=== PATIENT | female | born 1965 | race Caucasian/White ===

== ENCOUNTER 2017-03-14 09:52 | Emergency (ER) | payer BC ==
[~2017-03-14] VITALS: Ht 162.6 cm; Wt 90.9 kg
[~2017-03-14 09:52] MED LIST: CIPR-255 PO; FAMO1TAB48 PO; HYDR25TA4 PO; JUNEL FE; LOSA50TA6 PO; POTA-327 PO; RANI300T PO; SIMV20TA2 PO
[2017-03-14 09:59] VITALS: TEMP 36.8; Ht 162.6 cm; Wt 90.9 kg
[2017-03-14] MEDS ORDERED: KETOROLAC TROMETHAMINE 30 MG/ML VIAL IV STA (10:09)
[2017-03-14] MEDS ORDERED: METOCLOPRAMIDE HCL INJ 5 MG/ML 2 ML VIAL IV STA (10:09)
[2017-03-14] MEDS ORDERED: SODIUM CHLORIDE 0.9% 1000ML 1,000 ML IV STA (10:09)
[2017-03-14] MEDS ORDERED: HYDROmorphone INJ 1 MG/ML SYR IV STA (10:09)
--- NOTE | 2017-03-14 10:11 | EMERGENCY ROOM VISIT NOTE ---
History Report prepared by Laura: Elicia Fontaine Under the Supervision of: Dr. Naif Coronel M.D. First contact with patient: 10:03 Chief Complaint: ABDOMINAL PAIN Stated Complaint: PAIN IN LEFT SIDE History of Present Illness The patient is a 51 year old female who presents to the Emergency Room with complaints of constant left lower abdominal pain beginning yesterday. The patient states that 5 days ago she began to have some slight pain that resolved after 2 days. She reports that yesterday the pain started again but was significantly worse and has worsened since then. She notes that she has a history of diverticulitis and her last episode as 1 year ago. The patient states that the area is much larger than previously and is more painful in the lower part of her abdomen. She denies any fever and chills. She notes that she last took Tylenol 5 hours ago. She states that movement worsens her pain. She reports that this is the worst pain that she has had in her life. Source of History: patient Onset: yesterday Position: abdomen (lower) Timing: constant, worsening Modifying Factors (Worsening): movement Associated Symptoms: No fevers, No chills Review of Systems See HPI for pertinent positives & negatives. A total of 10 systems reviewed and were otherwise negative. Past Medical & Surgical Medical Problems: (1) Benign hypertension (2) Diverticulitis Colon (W/O Ment Of Hemorrhage) (3) Hypercholesterolemia (4) Ovarian cyst (5) Uterine Fibroid Family History FH: colon cancer FH: stomach cancer Ulcerative colitis Social History Smoking Status: Never Smoker Alcohol Use: occasionally Marital Status: Housing Status: lives with family Occupation Status: employed Current/Historical Medications Scheduled Amoxicillin & Pot Clavulanate (Augmentin 875-125 mg), 1 TAB PO BID Famotidine (Pepcid), 40 MG PO BID Hydrochlorothiazide (Hctz), 25 MG PO DAILY Losartan Potassium (Cozaar), 50 MG PO DAILY Metformin Hcl (Glucophage), 500 MG PO BID Potassium Chloride (Potassium Chloride Er), 1 CAP PO DAILY Ranitidine (Zantac), 300 MG PO HS Simvastatin (Zocor), 40 MG PO QPM [], 120 DAILY Scheduled PRN Oxycodone/Acetaminophen 5MG/325MG (Percocet 5MG/325MG), 1-2 TAB PO Q4H PRN for Pain Allergies Coded Allergies: Lisinopril (Verified Allergy, Unknown, hives, 03/14/17) Sulfa Antibiotics (Verified Allergy, Unknown, itchy, 03/14/17) Physical Exam Vital Signs Date Time Temp Pulse Resp B/P (MAP) Pulse Ox O2 Delivery O2 Flow Rate FiO2 03/14/17 12:21 97 18 133/78 96 Room Air 03/14/17 11:23 95 18 134/81 98 Room Air 03/14/17 10:50 101 20 153/94 94 Room Air 03/14/17 09:59 36.8 105 18 172/86 98 Room Air Physical Exam GENERAL: Patient is a healthy-appearing well-nourished [] HEAD: Normocephalic atraumatic EYES: Ocular movements intact pupils equal and react to light OROPHARYNX mucous membranes are moist no exudates present no erythema or edema present NECK: Supple no nuchal rigidity CHEST: Good equal expansion LUNGS: Clear and equal to auscultation CARDIAC: Normal S1 and S2 ABDOMEN: Tender to the LLQ area. BACK: No CVA tenderness EXTREMITIES: No pain upon palpation normal muscle strength in all groups no clubbing cyanosis or edema NEURO: Patient is following commands and answering questions appropriately. Alert and oriented x3 Cranial Nerves 2-12 grossly intact Medical Decision & Procedures ER Provider Diagnostic Interpretation: CT results as stated below per my review and radiologist interpretation: CT ABD/PELVIS IV CONTRAST ONLY FINDINGS: Lower chest: There are dependent atelectatic changes present. Liver: There is minimal hepatic steatosis. There are no focal hepatic masses Gallbladder: Unremarkable. Spleen: Normal in size and attenuation. Pancreas: Unremarkable. Adrenal glands: Unremarkable. Kidneys: There is symmetric renal cortical enhancement. The kidneys are normal in size without hydronephrosis. Bowel: There are no transition zones indicate bowel obstruction. The appendix appears normal. There is acute diverticulitis involving the colon at the descending sigmoid junction. There is no evidence of a peridiverticular abscess. Peritoneum: There is no intraperitoneal free air or abdominal ascites. Vasculature: The abdominal aorta is normal in course and caliber. Adenopathy: None. Pelvic viscera: There is a large bilobed 6.8 cm exophytic uterine fibroid. There is a 42 mm rim calcified right posterior uterine fibroid. Additional fibroids are also suspected. Skeletal structures: No destructive osseous lesions are seen. IMPRESSION: 1. Acute diverticulitis at the descending sigmoid junction 2. No evidence of bowel obstruction. No evidence of free air 3. Multiple uterine fibroids 4. Normal appendix Electronically signed by: David Espinosa M.D. 03/14/2017 11:45 AM Dictated Date/Time: 03/14/2017 11:39 AM Laboratory Results 03/14/17 10:20 Red Blood Count 4.86, Mean Corpuscular Volume 81.1, Mean Corpuscular Hemoglobin 27.6, Mean Corpuscular Hemoglobin Concent 34.0, Mean Platelet Volume 8.9, Neutrophils (%) (Auto) 72.3, Lymphocytes (%) (Auto) 21.0, Monocytes (%) (Auto) 4.3, Eosinophils (%) (Auto) 2.1, Basophils (%) (Auto) 0.1, Neutrophils # (Auto) 8.52, Lymphocytes # (Auto) 2.47, Monocytes # (Auto) 0.51, Eosinophils # (Auto) 0.25, Basophils # (Auto) 0.01 03/14/17 10:20 Test 03/14/17 10:20 White Blood Count 11.78 K/uL (4.8-10.8) Red Blood Count 4.86 M/uL (4.2-5.4) Hemoglobin 13.4 g/dL (12.0-16.0) Hematocrit 39.4 % (37-47) Mean Corpuscular Volume 81.1 fL (80-100) Mean Corpuscular Hemoglobin 27.6 pg (25-34) Mean Corpuscular Hemoglobin Concent 34.0 g/dl (32-36) Platelet Count 283 K/uL (130-400) Mean Platelet Volume 8.9 fL (7.4-10.4) Neutrophils (%) (Auto) 72.3 % Lymphocytes (%) (Auto) 21.0 % Monocytes (%) (Auto) 4.3 % Eosinophils (%) (Auto) 2.1 % Basophils (%) (Auto) 0.1 % Neutrophils # (Auto) 8.52 K/uL (1.4-6.5) Lymphocytes # (Auto) 2.47 K/uL (1.2-3.4) Monocytes # (Auto) 0.51 K/uL (0.11-0.59) Eosinophils # (Auto) 0.25 K/uL (0-0.5) Basophils # (Auto) 0.01 K/uL (0-0.2) RDW Standard Deviation 39.4 fL (36.4-46.3) RDW Coefficient of Variation 13.4 % (11.5-14.5) Immature Granulocyte % (Auto) 0.2 % Immature Granulocyte # (Auto) 0.02 K/uL (0.00-0.02) Urine Color DK YELLOW Urine Appearance CLEAR (CLEAR) Urine pH 5.5 (4.5-7.5) Urine Specific [place] 1.030 (1.000-1.030) Urine Protein NEG (NEG) Urine Glucose (UA) NEG (NEG) Urine Ketones TRACE (NEG) Urine Occult Blood NEG (NEG) Urine Nitrite NEG (NEG) Urine Bilirubin NEG (NEG) Urine Urobilinogen NEG (NEG) Urine Leukocyte Esterase NEG (NEG) Anion Gap 11.0 mmol/L (3-11) Est Creatinine Clear Calc Drug Dose 91.0 ml/min Estimated GFR () 99.8 Estimated GFR (Non- 86.1 BUN/Creatinine Ratio 11.9 (10-20) Calcium Level 9.6 mg/dl (8.5-10.1) Total Bilirubin 0.4 mg/dl (0.2-1) Direct Bilirubin 0.1 mg/dl (0-0.2) Aspartate Amino Transf (AST/SGOT) 10 U/L (15-37) Alanine Aminotransferase (ALT/SGPT) 14 U/L (12-78) Alkaline Phosphatase 56 U/L (45-117) Total Protein 7.5 gm/dl (6.4-8.2) Albumin 3.3 gm/dl (3.4-5.0) Lipase 121 U/L (73-393) Labs reviewed by ED physician. Medications Administered Medications (Trade) Dose Ordered Sig/Tina Route Start Time Stop Time Status Last Admin Dose Admin Sodium Chloride 1,000 ml @ 999 mls/hr Q1H1M STAT IV 03/14/17 10:09 03/14/17 11:09 DC 03/14/17 10:47 999 MLS/HR Ketorolac Tromethamine (Toradol Inj) 30 mg NOW STAT IV 03/14/17 10:09 03/14/17 10:11 DC 7/23/17 10:47 30 MG Metoclopramide HCl (Reglan Inj) 10 mg NOW STAT IV 03/14/17 10:09 03/14/17 10:11 DC 03/14/17 10:47 10 MG Hydromorphone HCl (Dilaudid Inj) 1 mg NOW STAT IV 03/14/17 10:09 03/14/17 10:11 DC 03/14/17 10:47 1 MG Amoxicillin/ Clavulanate Potassium (Augmentin Tab) 875 mg ONE ONCE PO 03/14/17 12:15 03/14/17 12:16 DC 03/14/17 12:19 875 MG ED Course 1003: Past medical records reviewed. The patient was evaluated in room B5. A complete history and physical examination was performed. 1009: Dilaudid Inj 1mg IV, Reglan Inj 10mg IV, Toradol Inj 30mg IV, Sodium Chloride 1000 ml @ 999 mls/hr IV. 1215: Augmentin Tab 875mg PO. 1221: I reevaluated and updated the patient. 1229: Upon reexamination the patient is doing well. I discussed results and treatment plan with the patient. She verbalizes agreement and understanding. The patient is ready for discharge. Medical Decision Differential diagnosis: Etiologies such as appendicitis, diverticulitis, PUD, biliary pathology, UTI, pancreatitis, obstruction, mesenteric ischemia, aortic pathology, infections, inflammatory bowel disease, renal colic, as well as others were entertained. Medication Reconciliation: I attest that I have personally reviewed the patient' s current medication list Blood Pressure Screening: Patient was found to have an elevated blood pressure and was referred to their primary care doctor for recheck and further treatment This is his this is a 51-year-old female who presents emergency department complaining of left lower quadrant abdominal pain. The patient is a benign soft belly on examination however she is tender in the left lower quadrant. The patient states this is the worst pain she is ever had in regards to her diverticulitis therefore using shared medical decision-making the patient decided to go for a CAT scan of the left lower quadrant. This was concerning for diverticulitis and the patient does have an elevation in her white blood cell count. After serial abdominal examination I do feel that the patient is safe enough to be discharged home. I will place her on Augmentin and stressed the need for follow-up with gastroenterology area and patient was in agreement with the treatment plan. Impression Primary Impression: Diverticulitis Scribe Attestation The scribe's documentation has been prepared under my direction and personally reviewed by me in its entirety. I confirm that the note above accurately reflects all work, treatment, procedures, and medical decision making performed by me. Departure Information Dispostion Home / Self-Care Prescriptions Oxycodone/Acetaminophen 5MG/325MG (PERCOCET 5MG/325MG) Tab 1-2 TAB PO Q4H Y for Pain, #14 TAB Prov: Naif Coronel MD 03/14/17 Amoxicillin & Pot Clavulanate (Augmentin 875-125 mg) 1 Tab Tab 1 TAB PO BID for 10 Days, #20 TAB Prov: Naif Coronel MD 03/14/17 Referrals Dee Yoo PA-C (PCP) Forms Call Back Authorization, HOME CARE DOCUMENTATION FORM, IMPORTANT VISIT INFORMATION Patient Instructions Diverticulosis Diverticulitis, Hypertension Hi, [facility] Additional Instructions Follow up with DR Ribeiro's office You were found to have an elevated blood pressure today (>120 sytolic or >90 diastolic). Per medicare guidelines, you need to follow up with this blood pressure screening with your Primary Care Physician (PCP). For a new PCP call [phone]. You received narcotic or benzodiazepene medication while in the emergency room today. Do not drive, operate heavy machinery, or drink alcohol under the influence of this medication. Take 600 mg Ibuprofen every 6 hours Take Percocet for breakthrough pain You have been examined and treated today on an emergency basis only. This is not a substitute for, or an effort to provide, complete comprehensive medical care. It is impossible to recognize and treat all injuries or illnesses in a single emergency department visit. It is therefore important that you follow up closely with your PCP. Call as soon as possible for an appointment. Thank you for your time and consideration. I look forward to speaking with you again soon. Please don't hesitate to call us if you have any questions. Problem Qualifiers Primary Impression: Diverticulitis Diverticulitis site: large intestine Diverticulitis bleeding: without bleeding Diverticulitis complication: without perforation or abscess Qualified Codes: K57.32 - Diverticulitis of large intestine without perforation or abscess without bleeding
[2017-03-14] MEDS ORDERED: OPTIRAY 320 IV PRN (10:15)
[2017-03-14 10:30] LABS: BASO % 0.1 %; BASO ABS # 0.01 K/uL (0-0.2); COMPLETE YES; EOS % 2.1 %; HEMATOCRIT 39.4 % (37-47); IG% 0.2 %; LYMPH ABS # 2.47 K/uL (1.2-3.4); MEAN CELL VOLUME 81.1 fL (80-100); MEAN CORPUSCULAR HEMOGLOBIN 27.6 pg (25-34); MEAN PLATELET VOLUME 8.9 fL (7.4-10.4); MONO % 4.3 %; NEUT % 72.3 %; PLATELET COUNT 283 K/uL (130-400); RED BLOOD COUNT 4.86 M/uL (4.2-5.4); WHITE BLOOD COUNT 11.78 K/uL (4.8-10.8)
[2017-03-14 10:44] LABS: BUN/CREATININE RATIO 11.9 (10-20); CALCIUM 9.6 mg/dl (8.5-10.1); CREATININE 0.79 mg/dl (0.60-1.20); POTASSIUM 3.5 mmol/L (3.5-5.1)
[2017-03-14 10:48] LABS: URINE APPEARANCE CLEAR (CLEAR); URINE BILIRUBIN NEG (NEG); URINE COLOR DK YELLOW; URINE NITRITE NEG (NEG); URINE PH 5.5 (4.5-7.5); UROBILINOGEN NEG (NEG)
[2017-03-14 10:54] LABS: MANUAL MICROSCOPIC REQUIRED? NO; REVIEW REQ? NO
--- NOTE | 2017-03-14 11:46 | DIAGNOSTIC IMAGING REPORT ---
CT ABD/PELVIS IV CONTRAST ONLY CLINICAL HISTORY: Left lower quadrant abdominal pain COMPARISON STUDY: 03/05/2016 TECHNIQUE: Following the IV administration of 94 mL of [id number]-320, CT scan of the abdomen and pelvis was performed from the lung bases to the proximal femurs. Images are reviewed in the axial, sagittal, and coronal planes. IV contrast was administered without complication. A dose lowering technique was utilized adhering to the principles of ALARA. CT DOSE: 834.15 mGy.cm FINDINGS: Lower chest: There are dependent atelectatic changes present. Liver: There is minimal hepatic steatosis. There are no focal hepatic masses Gallbladder: Unremarkable. Spleen: Normal in size and attenuation. Pancreas: Unremarkable. Adrenal glands: Unremarkable. Kidneys: There is symmetric renal cortical enhancement. The kidneys are normal in size without hydronephrosis. Bowel: There are no transition zones indicate bowel obstruction. The appendix appears normal. There is acute diverticulitis involving the colon at the descending sigmoid junction. There is no evidence of a peridiverticular abscess. Peritoneum: There is no intraperitoneal free air or abdominal ascites. Vasculature: The abdominal aorta is normal in course and caliber. Adenopathy: None. Pelvic viscera: There is a large bilobed 6.8 cm exophytic uterine fibroid. There is a 42 mm rim calcified right posterior uterine fibroid. Additional fibroids are also suspected. Skeletal structures: No destructive osseous lesions are seen. IMPRESSION: 1. Acute diverticulitis at the descending sigmoid junction 2. No evidence of bowel obstruction. No evidence of free air 3. Multiple uterine fibroids 4. Normal appendix Electronically signed by: David Espinosa M.D. 03/14/2017 11:45 AM Dictated Date/Time: 03/14/2017 11:39 AM
[2017-03-14] MEDS ORDERED: POTA1CAP2 PO (12:01)
[2017-03-14] MEDS ORDERED: RANI300T2 PO (12:01)
[2017-03-14] MEDS ORDERED: GLC/500 PO (12:01)
[2017-03-14] MEDS ORDERED: AMOXICILLIN/CLAVULANATE TAB 875 MG TAB PO ONE (12:15)
[2017-03-14] MEDS ORDERED: AMOX875T PO (12:18)
[2017-03-14] MEDS ORDERED: OXYC-57 PO (12:18)
[2017-03-14 12:21] VITALS: BP 133/78; PULSE 97; O2SAT 96
== END 2017-03-14 12:35 | disposition home or self-care (01) ==
LOC: C.EDB 09:53
DX: K57.32 Diverticulitis of large intestine without perforation or abscess without bleeding (principal); I10 Essential (primary) hypertension; E78.00 Pure hypercholesterolemia, unspecified; N83.209 Unspecified ovarian cyst, unspecified side; D25.9 Leiomyoma of uterus, unspecified; Z79.84 Long term (current) use of oral hypoglycemic drugs; Z80.0 Family history of malignant neoplasm of digestive organs

== ENCOUNTER 2021-08-17 16:00 | Inpatient (IN) ==
[2021-08-17 16:31] LABS: Basophils # (auto) 0.02 K/uL (0-0.2); Basophils % (auto) 0.3 %; Eosinophils # (auto) 0.23 K/uL (0-0.5); Hematocrit (blood only) 37.8 % (37-47); Hemoglobin 12.8 g/dL (12.0-16.0); Immature Granulocytes # (auto) 0.01 K/uL (0.00-0.02); Immature Granulocytes % (auto) 0.1 %; Lymphocytes # (auto) 2.03 K/uL (1.2-3.4); Lymphocytes % (auto) 26.2 %; Mean Corpuscular Hemoglobin 28.1 pg (25-34); Mean Corpuscular Hgb Conc 33.9 g/dL (32-36); Mean Corpuscular Volume 83.1 fL (80-100); Mean Platelet Volume 9.3 fL (7.4-10.4); Monocytes # (auto) 0.34 K/uL (0.11-0.59); Monocytes % (auto) 4.4 %; Neutrophils # (auto) 5.12 K/uL (1.4-6.5); Platelet Count 263 K/uL (130-400); RDW Coefficient of Variation 13.5 % (11.5-14.5); RDW Standard Deviation 40.6 fL (36.4-46.3); Red Blood Count 4.55 M/uL (4.2-5.4); White Blood Count 7.75 K/uL (4.8-10.8)
[2021-08-17] MEDS ORDERED: SODIUM CHLORIDE 0.9% 1000ML 1,000 ML IV SCH (16:53)
--- NOTE | 2021-08-17 16:54 | Emergency Department Note ---
History of Present Illness General Chief complaint: Abnormal Labs/Diagnostic Testing Stated complaint: ABNORMAL LAB WORK,SENT FOR MRI,?BLOOD CLOT Time Seen by Provider: 08/17/21 16:31 History of Present Illness Maximum Pain Intensity: 5 Patient is a 55-year-old female with past medical history significant for GERD, hypertension, dyslipidemia and diabetes who presents emergency department for evaluation after she had some abnormal blood work earlier today. Patient notes that she went to a [facility] walk-in clinic this afternoon for evaluation of 2 complaints. First she had had a lot of nasal and sinus pressure and eye pain over the last week and thought she had a sinus infection. Of note, she had also been experiencing some upper abdominal discomfort on and off over the last 3 weeks that was quite intense last evening. She saw the practitioner at the clinic who gave her a Z-Myles for a presumed sinus infection, and a prescription for Carafate for her stomach pain but recommended that she come over the hospital to have some blood work done. Patient was contacted by the pr actitioner that her D-dimer was elevated and it was likely that she would need some imaging, therefore they directed her to the emergency department. Patient notes that she has had epigastric pain on and off over the last 3 weeks. It wraps underneath her ribs bilaterally to her flanks and radiates through to her back. She denies any associated nausea or vomiting but admits to some anorexia. She is also had some loose stools. She describes it as a squeezing and a spasm pain. At its worst last night she would have rated it a 7/10. She currently rates it a 2/10. She has a history of diverticulitis but states that this does not feel similar. She had ham and sweet potatoes for Kell dinner yesterday. She drinks alcohol quite infrequently, had a small glass of wine about 3 days ago. She denies any urinary symptoms. No recent medication changes. She is on Glucophage and Januvia for her diabetes. They did trial her on Jardiance for about a month, but that was in January (6 months ago). She denies any chest pain palpitations or shortness of breath. She did do at home Covid te st earlier this week which was negative. She is vaccinated against COVID x 3. Home Medications Medication Instructions Recorded Confirmed Type famotidine 40 mg tablet 40 mg PO BID #0 tab 05/01/12 08/17/21 History hydrochlorothiazide 25 mg tablet 25 mg PO DAILY #0 tab 05/01/12 08/17/21 History simvastatin 40 mg tablet 40 mg PO QAM #0 tab 05/01/12 08/17/21 History metformin 500 mg tablet,extended 2,000 mg PO PM #0 tab 03/14/17 08/17/21 History release 24hr potassium chloride 10 mEq 10 meq PO DAILY #0 cap 03/14/17 08/17/21 History capsule,extended release aspirin 81 mg tablet,delayed 81 mg PO DAILY 08/17/21 08/17/21 History release sitagliptin 100 mg tablet (Januvia) 100 mg PO DAILY 08/17/21 08/17/21 History valsartan 80 mg tablet 80 mg PO DAILY 08/17/21 08/17/21 History Allergies Allergy/AdvReac Type Severity Reaction Status Date / Time lisinopril Allergy Unknown hives Verified 08/17/21 17:10 Sulfa (Sulfonamide Allergy Unknown itchy Verified 08/17/21 17:10 Antibiotics) Past Med/Surg History Medical History (Updated 08/17/21 @ 18:49 by Zulay Ortiz) Diabetes Diverticulitis Diverticulosis Dyslipidemia GERD (gastroesophageal reflux disease) Hypertension Surgical History (Updated 08/17/21 @ 18:48 by Zulay Ortiz) No history of previous surgery Social History Smoking Status: Never smoker Preferred Language: Arabic Feels Safe at Home: Yes Physical Exam Vital Signs Vital Signs - 24 hr 08/17/21 16:03 08/17/21 17:00 08/17/21 19:00 Temperature 36.9 C Temperature Source Temporal Artery Scan Pulse Rate 113 H Pulse Rate [Apical] 100 H 98 H Pulse Rhythm [Apical] Regular Respiratory Rate 19 16 18 Respiratory Effort / Characteristics Non-Labored Spontaneous Non-Labored Non-Labored Spontaneous Respiratory Depth Normal Normal Normal Respiratory Pattern Regular Regular Blood Pressure 169/88 H Blood Pressure [Left Arm] 153/90 H 171/96 H Blood Pressure Mean 115 Blood Pressure Mean [Left Arm] 111 121 Blood Pressure Position [Left Arm] Sitting Pulse Oximetry 97 95 98 Oxygen Delivery Method Room Air Room Air Room Air Sepsis Recent Fever Within 48 Hours No Sepsis New/Unexplained Change in Mental Status N/A Sepsis Action Taken by Nursing No Action Required CONSTITUTIONAL: Patient is a well-appearing 55-year-old female who is awake and alert and in no acute distress. EYES: Pupils equal, round, reactive to light and accommodation. EOMs intact without nystagmus. Sclera are anicteric. ENT: Tympanic membranes intact, with normal landmarks. External canals are clear. Oral and nasopharynx are clear. Mucous membranes are moist, no lesions, tongue and gums appear normal. CARDIOVASCULAR: Regular rate and rhythm,. Peripheral pulses easy to palpable. RESPIRATORY: Breath sounds equal and clear to auscultation without wheezes, rales, or rhonchi heard. Full and equal chest expansion without accessory muscle use or retractions. GI: Bowel sounds are present. Abdomen is soft, obese, mildly distended in the epigastric and the left upper quadrant without guarding or rebound. No pain in the right upper quadrant. No pain in the right lower quadrant over McBurney sign. No CVA tenderness. MUSCULOSKELETAL: Full range of motion of extremities x 4 with good strength. No cyanosis, edema, joint tenderness or swelling. No deformity. INTEGUMENTARY: No lesions or rash, normal skin turgor. NEUROLOGICAL: Alert, oriented, and cooperative. Cranial nerves, sensation and strength grossly intact. Pupils round, equal, and react to light, EOMs are full. LYMPH: No lymphadenopathy. Course Course The patient was seen and assessed as above. Old records are reviewed, specifically the blood work that was performed at our facility around 1300 today. Of note, her white count was normal, she was not anemic. No electrolyte or renal function abnormalities noted. Transaminases are not elevated, D-dimer was slightly elevated at 640, but the lipase was markedly elevated at 8900. Laboratory studies from earlier today were reviewed with the patient. She does not have a history of pancreatitis. Repeat laboratory studies were collected by nursing staff-CBC with differential, CMP and lipase were ordered.. EKG was obtained and is as noted below. Patient was ordered IV fluids, she declined any medication for pain or nausea at this time. Given the elevated D-dimer, which is likely related to the pancreatitis, chest CT was ordered, in addition to a CT of the abdomen and pelvis to evaluate for pancreatitis. Repeat laboratory studies here this afternoon, again no normal white count at 7700, H&H 12.8 and 37.8, platelet count 263,000. Sodium 135, potassium 3.2, chloride 99, carbon 29, BUN 10, creatinine 0.77. Glucose slightly high at 307. AST, ALT and alk phos are all normal. Lipase is now 10,286. Covid swab negative. Urine microscopy is without signs of infection. CT scan of the chest is negative for PE. CT scan of the abdomen and pelvis shows no CT evidence for pancreatitis. Hiatal hernia noted, diverticulosis without evidence for diverticulitis. Gallbladder is well distended with no evidence for intraluminal calculi, wall thickening or pericholecystic edema. Patient reviewed with Dr. Du. The patient was reassessed. She reported that she still is experiencing some minor waves of discomfort, but again declined any medication for pain. Laboratory studies and CT scan imaging was reviewed with her. Admission/observation was advised. She does note that her blood sugars have been trending high over the last couple of days, she thought that this was due to her dietary indiscretions because of the holiday. She has a continuous glucose monitor. Consultation was placed with the [facility] service. Patient was reviewed with Dr. Wilson. Please refer to his H&P and admission orders for further information. Administered Medications Sodium Chloride (Nss 1000ml) 1,000 mls @ 250 mls/hr IV .Q4H ZACK Stop: 09/16/21 18:44 Last Admin: 08/17/21 19:26 Dose: 250 mls/hr Documented by: [id number] Discontinued Medications Sodium Chloride (Nss 1000ml) 1,000 mls @ 999 mls/hr IV .Q1H1M ZACK Stop: 08/17/21 17:53 Last Infusion: 08/17/21 18:13 Dose: 0 mls/hr Documented by: [id number] Admin: 08/17/21 16:59 Dose: 999 mls/hr Documented by: [id number] Ioversol (Optiray 320 125ml) 120 ml IV ONCE ONE Stop: 08/17/21 17:38 Last Admin: 08/17/21 17:38 Dose: 120 ml Documented by: [id number] Potassium Chloride (Potassium Chloride Crtab 20 Meq Tabcr) 40 meq PO NOW STA Stop: 08/17/21 20:43 Last Admin: 08/17/21 20:46 Dose: 40 meq Documented by: [id number] Medical Decision Making Differential Diagnosis Differential diagnoses entertained included GERD, gastritis, esophagitis, peptic ulcer disease, pancreatitis, biliary colic, acute cholecystitis, ascending cholangitis, diverticulitis, mass or malignancy, among others. Medical Records Attestation: I reviewed the patient's medical records. Home Medications Current Medication List: was personally reviewed by me Laboratory Data Attestation: I reviewed the patient's lab results. Result diagrams: 08/17/21 Unknown 08/17/21 Unknown Lab Results 08/17/21 08/17/21 08/17/21 Range/Units 17:00 17:40 Unknown WBC 7.75 (4.8-10.8) K/uL RBC 4.55 (4.2-5.4) M/uL Hgb 12.8 (12.0-16.0) g/dL Hct 37.8 (37-47) % MCV 83.1 (80-100) fL MCH 28.1 (25-34) pg MCHC 33.9 (32-36) g/dL RDW Std Deviation 40.6 (36.4-46.3) fL RDW Coeff of Jessica 13.5 (11.5-14.5) % Plt Count 263 (130-400) K/uL MPV 9.3 (7.4-10.4) fL Immature Gran % (Auto) 0.1 % Neut % (Auto) 66.0 % Lymph % (Auto) 26.2 % [place] % (Auto) 4.4 % Eos % (Auto) 3.0 % Baso % (Auto) 0.3 % Neut # (Auto) 5.12 (1.4-6.5) K/uL Lymph # (Auto) 2.03 (1.2-3.4) K/uL [place] # (Auto) 0.34 (0.11-0.59) K/uL Eos # (Auto) 0.23 (0-0.5) K/uL Baso # (Auto) 0.02 (0-0.2) K/uL Immature Gran # (Auto) 0.01 (0.00-0.02) K/uL Sodium (136-145) mmol/L Potassium (3.5-5.1) mmol/L Chloride (98-107) mmol/L Carbon Dioxide (21-32) mmol/L Anion Gap (3-11) BUN (7-18) mg/dl Creatinine (0.6-1.2) mg/dl Est Cr Clr Drug Dosing ml/min Est GFR ( Amer) ml/min Est GFR (Non-Af Amer) ml/min BUN/Creatinine Ratio (10-20) Glucose (70-99) mg/dl Calcium (8.5-10.1) mg/dl Total Bilirubin (0.2-1) mg/dl AST (15-37) U/L ALT (12-78) Alkaline Phosphatase (45-117) U/L Total Protein (6.4-8.2) gm/dl Albumin (3.4-5.0) gm/dl Globulin (2.5-4.0) gm/dl Albumin/Globulin Ratio (0.9-2) Lipase (73-393) U/L Beta-Hydroxybutyric Acd (0.2-2.81) mg/dl Urine Color Yellow Urine Appearance Clear (Clear) Urine pH 5.5 (4.5-7.5) Ur Specific [place] 1.021 (1.000-1.030) Urine Protein Negative (Negative) Urine Glucose (UA) Trace H (Negative) Urine Ketones Negative (Negative) Urine Blood Negative (Negative) Urine Nitrite Negative (Negative) Urine Bilirubin Negative (Negative) Urine Urobilinogen Negative (Negative) Ur Leukocyte Esterase Trace H (Negative) Urine WBC (Auto) 1-5 (0-5) /hpf Urine RBC (Auto) 0-4 (0-4) /hpf U Hyaline Cast (Auto) 0 (0-5) /lpf U Epithel Cells (Auto) 5-10 H (0-5) /lpf Urine Bacteria (Auto) Negative (Negative) SARS-CoV-2, RNA, NAAT NEGATIVE (NEGATIVE) 08/17/21 Range/Units Unknown WBC (4.8-10.8) K/uL RBC (4.2-5.4) M/uL Hgb (12.0-16.0) g/dL Hct (37-47) % MCV (80-100) fL MCH (25-34) pg MCHC (32-36) g/dL RDW Std Deviation (36.4-46.3) fL RDW Coeff of Jessica (11.5-14.5) % Plt Count (130-400) K/uL MPV (7.4-10.4) fL Immature Gran % (Auto) % Neut % (Auto) % Lymph % (Auto) % [place] % (Auto) % Eos % (Auto) % Baso % (Auto) % Neut # (Auto) (1.4-6.5) K/uL Lymph # (Auto) (1.2-3.4) K/uL [place] # (Auto) (0.11-0.59) K/uL Eos # (Auto) (0-0.5) K/uL Baso # (Auto) (0-0.2) K/uL Immature Gran # (Auto) (0.00-0.02) K/uL Sodium 135 L (136-145) mmol/L Potassium 3.2 L (3.5-5.1) mmol/L Chloride 99 (98-107) mmol/L Carbon Dioxide 29 (21-32) mmol/L Anion Gap 7.0 (3-11) BUN 10 (7-18) mg/dl Creatinine 0.77 (0.6-1.2) mg/dl Est Cr Clr Drug Dosing 86.9 ml/min Est GFR ( Amer) 100.0 ml/min Est GFR (Non-Af Amer) 86.3 ml/min BUN/Creatinine Ratio 13.6 (10-20) Glucose 307 H* (70-99) mg/dl Calcium 10.0 (8.5-10.1) mg/dl Total Bilirubin 0.3 (0.2-1) mg/dl AST 9 L (15-37) U/L ALT 16 (12-78) Alkaline Phosphatase 69 (45-117) U/L Total Protein 7.9 (6.4-8.2) gm/dl Albumin 3.5 (3.4-5.0) gm/dl Globulin 4.4 H (2.5-4.0) gm/dl Albumin/Globulin Ratio 0.8 L (0.9-2) Lipase 08866 H (73-393) U/L Beta-Hydroxybutyric Acd (0.2-2.81) mg/dl Urine Color Urine Appearance (Clear) Urine pH (4.5-7.5) Ur Specific [place] (1.000-1.030) Urine Protein (Negative) Urine Glucose (UA) (Negative) Urine Ketones (Negative) Urine Blood (Negative) Urine Nitrite (Negative) Urine Bilirubin (Negative) Urine Urobilinogen (Negative) Ur Leukocyte Esterase (Negative) Urine WBC (Auto) (0-5) /hpf Urine RBC (Auto) (0-4) /hpf U Hyaline Cast (Auto) (0-5) /lpf U Epithel Cells (Auto) (0-5) /lpf Urine Bacteria (Auto) (Negative) SARS-CoV-2, RNA, NAAT (NEGATIVE) Imaging Data Attestation: I personally reviewed and interpreted this imaging study as follows: Radiologist's Impression: Abdomen/Pelvis CT 08/17/21 16:52 CT abd pelvis IV con only CLINICAL HISTORY: epigastric pain, elevated lipase COMPARISON STUDY: 03/14/2017 CT DOSE: TECHNIQUE: Standard CT of the Abdomen and Pelvis was performed with IV contrast. A dose lowering technique was utilized adhering to the principles of ALARA. Contrast Volume: Optiray 320, 120 ml. The patient did not receive oral contrast. FINDINGS: Lung base: The lung bases are clear. Abdominal cavity: There is no evidence for abdominal mass, adenopathy or ascites. Liver: There is homogeneous attenuation of the liver parenchyma. There is no evidence for enhancing mass lesion. Spleen: There is homogeneous attenuation of the splenic parenchyma. There is no enhancing mass lesion. Pancreas: There is homogeneous attenuation of the pancreatic parenchyma. There is no evidence for mass lesion or peripancreatic fluid collection. Gall Bladder: The gallbladder is well distended with no evidence for intraluminal calculi, wall thickening or pericholecystic edema. Adrenal glands: The adrenal glands are normal in size and attenuation. There is no evidence for enhancing mass lesion. Kidneys: There is homogeneous attenuation of the renal parenchyma bilaterally. There is no evidence for renal calculus or hydronephrosis. There is no evidence for enhancing mass. Bowel: There is a small sliding-type hiatal hernia. The bowel loops are normally placed within the abdomen and pelvis without evidence for dilatation or obstruction. There is diverticulosis of the descending and sigmoid colon. There is no evidence for diverticulitis. There are no inflammatory changes present. There is no evidence for free air. There is a normal appendix in the right lower quadrant. Bladder: The bladder is within normal limits with no evidence for focal mass, calculus or diverticulum. : There is no evidence for pelvic mass or adenopathy. There is no evidence for pelvic ascites. Uterus is again enlarged with calcified fibroid. Vasculature: There is no evidence for aneurysmal dilatation of the abdominal aorta. Mild atherosclerotic calcifications present. Osseous structures: There is no acute osseous pathology. Mild degenerative changes are seen within the spine. IMPRESSION: 1. No CT evidence for pancreatitis. 2. Small sliding-type hiatal hernia. 3. Diverticulosis without evidence for diverticulitis. 4. Additional nonacute findings as delineated above. ACT 112: Negative or not required by law. Electronically signed by: Myles Aggarwal M.D. 08/17/2021 6:27 PM Chest CTA 08/17/21 16:52 CT angio chest PE protocol CLINICAL HISTORY: Epigastric pain radiating into the chest. Elevated d-dimer. Evaluate for pulmonary embolus COMPARISON STUDY: No previous studies for comparison. CT DOSE: 1381.90 mGy.cm TECHNIQUE: CT Angio of the chest was performed.followed by image post processing with coronal, and sagittal MIP reformats. Contrast Volume: Optiray 320, 120 ml FINDINGS: Thyroid: There is marked enlargement of the thyroid gland with calcification present. Right lobe is greater than the left. Follow-up thyroid ultrasound on a nonemergent basis is recommended. Vasculature: There is homogeneous perfusion of the pulmonary vasculature bilaterally. No intraluminal filling defects or evidence for pulmonary embolus is seen. Airway: The airway is clear. No endobronchial lesion is identified. Lungs: There is asymmetric elevation of the right hemidiaphragm with minimal atelectasis versus scarring at the right lung base. The lungs are otherwise clear of acute alveolar opacities, air bronchograms or pulmonary nodules. Pleura: There is no evidence for pleural effusion. There is no evidence for pneumothorax. Mediastinum: There is no evidence for pathologic adenopathy. The heart size is within normal limits. There is coronary artery calcification present. The thoracic aorta is within normal limits. There is no evidence for pericardial effusion. Upper abdomen:The adrenal glands are normal bilaterally. There is evidence for hepatosplenomegaly with suspicion of fatty infiltration of the liver. Osseous structures: There is no acute osseous pathology. Impression: 1. No CTA evidence for pulmonary embolus. 2. Elevation of the right hemidiaphragm with minimal atelectasis versus scarring at the right lung base. Otherwise, no acute chest disease. 3. Coronary artery calcification. 4. Evidence for hepatosplenomegaly with fatty infiltration of liver. ACT 112: Negative or not required by law. Electronically signed by: Myles Aggarwal M.D. 08/17/2021 6:13 PM ECG Data Attestation: I personally reviewed and interpreted this ECG as follows: Indication: + abdominal pain Rate (beats per minute): 108 Rhythm: + sinus tachycardia ECG Intervals/blocks: + Normal QT and + Normal QT-c ECG [place]: + Normal ECG ST segments: + Normal ST segments Comparison ECG Date: no prior available MDM Narrative See ED Course. Impression & Plan Acute pancreatitis Discharge Plan Visit Data Chief Complaint: Abnormal Labs/Diagnostic Testing Stated Complaint: ABNORMAL LAB WORK,SENT FOR MRI,?BLOOD CLOT ED Provider: Jake Du ED Midlevel Provider: Zulay Ortiz Discharge Problem: Acute pancreatitis Patient Disposition: Being Evaluated by Hospitalist Forms Stand Alone Forms: My [facility] Prescriptions Prescriptions: No Action famotidine 40 mg Tablet 40 mg PO BID Qty: 0 RF: 0 simvastatin 40 mg Tablet 40 mg PO QAM Qty: 0 RF: 0 hydrochlorothiazide 25 mg Tablet 25 mg PO DAILY Qty: 0 RF: 0 potassium chloride 10 mEq Capsule, Extended Release 10 meq PO DAILY Qty: 0 RF: 0 metformin 500 mg Tablet Extended Release 24hr 2,000 mg PO PM Qty: 0 RF: 0 valsartan 80 mg tablet 80 mg PO DAILY RF: 0 aspirin 81 mg Tablet,Delayed Release (Dr/Ec) 81 mg PO DAILY RF: 0 Januvia 100 mg tablet 100 mg PO DAILY RF: 0 Referrals Referrals: Dee Yoo PA-C [Primary Care Provider] -
[2021-08-17 16:55] LABS: Albumin Globulin Ratio 0.8 (0.9-2); Albumin Level 3.5 gm/dl (3.4-5.0); BUN Creatinine Ratio 13.6 (10-20); Bilirubin,Total 0.3 mg/dl (0.2-1); Creatinine Clr Calc Pharmacy 86.9 ml/min; Est GFR (Non-African American) 86.3 ml/min; Potassium 3.2 mmol/L (3.5-5.1); Total Protein 7.9 gm/dl (6.4-8.2)
[2021-08-17 16:56] LABS: Globulin 4.4 gm/dl (2.5-4.0)
[2021-08-17] MEDS ORDERED: OPTIRAY 320 125ml IV ONE (17:37)
[2021-08-17 17:56] LABS: Appearance Urine Clear (Clear); Bacteria Urine Automated Negative (Negative); Bilirubin Urine Negative (Negative); Blood Urine Negative (Negative); Cast Urine Automated 0 /lpf (0-5); Color Urine Yellow; Glucose Urine UA Trace (Negative); Ketones Urine Negative (Negative); Leukocyte Esterase Urine Trace (Negative); Nitrite Urine Negative (Negative); Protein Urine Negative (Negative); RBC Urine Automated 0-4 /hpf (0-4); Specific Gravity Urine 1.021 (1.000-1.030); Urobilinogen Urine Negative (Negative); pH Urine 5.5 (4.5-7.5)
--- NOTE | 2021-08-17 18:15 | CT Scan Report ---
CT angio chest PE protocol CLINICAL HISTORY: Epigastric pain radiating into the chest. Elevated d-dimer. Evaluate for pulmonary embolus COMPARISON STUDY: No previous studies for comparison. CT DOSE: 1381.90 mGy.cm TECHNIQUE: CT Angio of the chest was performed.followed by image post processing with coronal, and s agittal MIP reformats. Contrast Volume: Optiray 320, 120 ml FINDINGS: Thyroid: There is marked enlargement of the thyroid gland with calcification present. Right lobe is g reater than the left. Follow-up thyroid ultrasound on a nonemergent basis is recommended. Vasculature: There is homogeneous perfusion of the pulmonary vasculature bilaterally. No intraluminal filling defects or evidence for pulmonary embolus is seen. Airway: The airway is clear. No endobronchial lesion is identified. Lungs: There is asymmetric elevation of the right hemidiaphragm with minimal atelectasis versus scarr ing at the right lung base. The lungs are otherwise clear of acute alveolar opacities, air bronchogra ms or pulmonary nodules. Pleura: There is no evidence for pleural effusion. There is no evidence for pneumothorax. Mediastinum: There is no evidence for pathologic adenopathy. The heart size is within normal limits. There is coronary artery calcification present. The thoracic aorta is within normal limits. There is no evidence for pericardial effusion. Upper abdomen:The adrenal glands are normal bilaterally. There is evidence for hepatosplenomegaly wit h suspicion of fatty infiltration of the liver. Osseous structures: There is no acute osseous pathology. Impression: 1. No CTA evidence for pulmonary embolus. 2. Elevation of the right hemidiaphragm with minimal atelectasis versus scarring at the right lung ba se. Otherwise, no acute chest disease. 3. Coronary artery calcification. 4. Evidence for hepatosplenomegaly with fatty infiltration of liver. ACT 112: Negative or not required by law. Electronically signed by: Myles Aggarwal M.D. 08/17/2021 6:13 PM
--- NOTE | 2021-08-17 18:29 | CT Scan Report ---
CT abd pelvis IV con only CLINICAL HISTORY: epigastric pain, elevated lipase COMPARISON STUDY: 03/14/2017 CT DOSE: TECHNIQUE: Standard CT of the Abdomen and Pelvis was performed with IV contrast. A dose lowering paige hnique was utilized adhering to the principles of ALARA. Contrast Volume: Optiray 320, 120 ml. The patient did not receive oral contrast. FINDINGS: Lung base: The lung bases are clear. Abdominal cavity: There is no evidence for abdominal mass, adenopathy or ascites. Liver: There is homogeneous attenuation of the liver parenchyma. There is no evidence for enhancing m ass lesion. Spleen: There is homogeneous attenuation of the splenic parenchyma. There is no enhancing mass lesion . Pancreas: There is homogeneous attenuation of the pancreatic parenchyma. There is no evidence for mas s lesion or peripancreatic fluid collection. Gall Bladder: The gallbladder is well distended with no evidence for intraluminal calculi, wall thick ening or pericholecystic edema. Adrenal glands: The adrenal glands are normal in size and attenuation. There is no evidence for enhan cing mass lesion. Kidneys: There is homogeneous attenuation of the renal parenchyma bilaterally. There is no evidence f or renal calculus or hydronephrosis. There is no evidence for enhancing mass. Bowel: There is a small sliding-type hiatal hernia. The bowel loops are normally placed within the ab domen and pelvis without evidence for dilatation or obstruction. There is diverticulosis of the desce nding and sigmoid colon. There is no evidence for diverticulitis. There are no inflammatory changes p resent. There is no evidence for free air. There is a normal appendix in the right lower quadrant. Bladder: The bladder is within normal limits with no evidence for focal mass, calculus or diverticulu m. : There is no evidence for pelvic mass or adenopathy. There is no evidence for pelvic ascites. Uter us is again enlarged with calcified fibroid. Vasculature: There is no evidence for aneurysmal dilatation of the abdominal aorta. Mild atherosclero tic calcifications present. Osseous structures: There is no acute osseous pathology. Mild degenerative changes are seen within th e spine. IMPRESSION: 1. No CT evidence for pancreatitis. 2. Small sliding-type hiatal hernia. 3. Diverticulosis without evidence for diverticulitis. 4. Additional nonacute findings as delineated above. ACT 112: Negative or not required by law. Electronically signed by: Myles Aggarwal M.D. 08/17/2021 6:27 PM
[2021-08-17] MEDS: SODIUM CHLORIDE 0.9% 1000ML 1,000 ML IV SCH (19:26)
[2021-08-17] MEDS ORDERED: POTASSIUM CHLORIDE CRTAB 20 MEQ TABCR PO STA (20:42)
[2021-08-17] MEDS ORDERED: MoRPHine SULFATE 4 MG/ML 1 ML CARP\\VIAL IV STA (21:41)
[2021-08-17] MEDS ORDERED: ONDANSETRON INJ 2 MG/ML 2 ML VIAL IV STA (21:41)
[2021-08-17] MEDS ORDERED: ONDANSETRON INJ 2 MG/ML 2 ML VIAL IV PRN (23:07)
[2021-08-17] MEDS ORDERED: HYDROmorphone INJ 0.5 MG/0.5 ML SYR IV PRN (23:07)
[2021-08-17] MEDS ORDERED: ACETAMINOPHEN 325 MG TAB PO PRN (23:07)
--- NOTE | 2021-08-17 23:07 | History and Physical Report ---
DATE OF ADMISSION: 08/17/2021. CHIEF COMPLAINT: Abdominal pain. HISTORY OF PRESENT ILLNESS: This is a 55-year-old female with past medical history significant for type 2 diabetes, hyperlipidemia, hypertension, GERD, obesity, who presents with ongoing abdominal pain. She is having abdominal pain for the last 3 weeks on and off in the epigastric region. Last night, it was severe. She also went to outpatient clinic for sinus infection and they did lab work and D-dimer came elevated and she was advised to come to the ER and CTA chest unremarkable. But in the ER, CT of abdomen and pelvis was okay, but lipase was vry high. She is complaining of on and off abdominal pain for the last 3 weeks, also some nausea and not able to eat much because of pain. Denies any diarrhea or constipation. Stools are somewhat loose, but no blood in the stools. No burning micturition, no swelling in the legs. No chest pain, no shortness of breath. Has some runny nose from her sinuses and she has some pain in her maxillary and nasal region, Denies any headache. No blurred visions, no earache, no sore throat, no cough. She felt somewhat feverish today. Currently, resting comfortably and hemodynamically stable. ALLERGIES: LISINOPRIL, SULFA ANTIBIOTICS. PAST MEDICAL HISTORY: As mentioned above. PAST SURGICAL HISTORY: Colonoscopy, cryocautery of cervix, dental surgery, EGD, EGD with biopsy. MEDICATIONS: The patient is on aspirin 81 mg p.o. daily, famotidine 40 mg p.o. b.i.d., hydrochlorothiazide 25 mg p.o. daily, metformin 2000 mg p.o. p.m., potassium chloride 20 mEq p.o. daily, simvastatin 40 mg p.o. daily, Januvia 100 mg p.o. daily, valsartan 80 mg p.o. daily. FAMILY HISTORY: Significant for mother has blood clots, breast cancer, diabetes, ulcerative colitis, glaucoma, fibromyalgia; father had stroke, hyperlipidemia; paternal grandfather had colorectal cancer; maternal grandmother had colorectal cancer. SOCIAL HISTORY: , no smoking. Alcohol, rarely. No drug use. REVIEW OF SYSTEMS: As per HPI. Rest of the review of systems is negative. PHYSICAL EXAMINATION: GENERAL: The patient is obese, not in acute distress. VITAL SIGNS: Temperature 36.9, pulse 98, respiratory rate 18, blood pressure 171/96, oxygen 98% on room air. HEENT: Pupils equal, round and reactive to light. Oral mucosa dry. NECK: No JVD, no neck masses. CARDIOVASCULAR: S1 and S2 heard. Regular rate and rhythm. No murmur, no gallop. RESPIRATORY SYSTEM: Normal AP diameter. No accessory muscle use. No wheezing, no crackles. ABDOMEN: Soft, bowel sounds present. Mild epigastric tenderness. No guarding, no rigidity, no distention. CENTRAL NERVOUS SYSTEM: Cranial nerves II-XII grossly intact, nonfocal. EXTREMITIES: No edema, no erythema. LABORATORY DATA: WBC 7.7, hemoglobin 12.8, hematocrit 37.8, platelets 263. Sodium 135, potassium 3.2, chloride 99, bicarbonate 29, BUN 10, creatinine 0.7, serum glucose 307, calcium 10, total bilirubin 0.3, AST 9, ALT 16, alkaline phosphatase 69, lipase, 10,286. Urinalysis, trace leukocyte esterase. SARS-CoV-2 negative. IMAGING DATA: CTA of the chest, no PE, hepatosplenomegaly with fatty infiltration of liver. CT of abdomen and pelvis with IV contrast only. No CT evidence for pancreatitis. Small sliding type hiatal hernia, diverticulosis without evidence of diverticulitis. EKG: Sinus tachycardia at a rate of 108, nonspecific ST abnormalities. ASSESSMENT AND PLAN: This is a 55-year-old female who presents with ongoing abdominal pain and also sinus infection and found to have acute pancreatitis. 1. Abdominal pain, elevated lipase: Though on CT, it is not obvious, resents with acute pancreatitis, etiology unclear. Will follow the lipid profile in the a.m. Will keep her n.p.o., aggressive fluids with Ringer's lactate, IV Dilaudid p.r.n., IV Zofran p.r.n. Consult GI in the a.m. for further recommendations. 2. Diabetes: Sugars are running high. Will hold her home metformin and Januvia. Place on Lantus 5 units b.i.d., insulin sliding scale. Follow the blood sugars. 3. History of hypertension: Continue hydrochlorothiazide and valsartan. Will monitor the blood pressure. 4. Gastroesophageal reflux disease: Will place on IV Pepcid. 5. Hypokalemia: Will replace. Continue home potassium supplements. 6. Deep venous thrombosis prophylaxis: Lovenox. DISPOSITION: Closely monitor in the medical floor. PT/OT prior to discharge. Social service to help with discharge planning. Level 1 full code. Job ID: [id number] MTDD
[2021-08-18] MEDS: FAMOTIDINE 20 MG in SYRINGE 3 ML IV SCH ×3 (00:26→20:55)
[2021-08-18] MEDS: AMPICILLIN/SULBACTAM SOD 1,500 MG in 0.9 % SODIUM CHLORIDE 100 ML IV SCH ×4 (00:30→20:41)
[2021-08-18] MEDS: ENOXAPARIN INJ 40 MG/0.4 ML SYR SQ SCH ×2 (00:33→20:42)
[2021-08-18] MEDS: INSULIN ASPART PER UNIT SC SCH ×4 (00:57→20:03)
[2021-08-18] MEDS: INSULIN GLARGINE SOLOSTAR 100 UNITS/ML 3 ML PEN SC SCH ×3 (00:58→20:42)
[2021-08-18] MEDS: SODIUM CHLORIDE 0.9% 1000ML 1,000 ML IV SCH (01:06)
[2021-08-18] MEDS: LACTATED RINGER'S 1,000 ML IV SCH ×6 (01:09→23:50)
[2021-08-18 05:16] LABS: Basophils # (auto) 0.02 K/uL (0-0.2); Basophils % (auto) 0.3 %; Eosinophils # (auto) 0.21 K/uL (0-0.5); Eosinophils % (auto) 2.8 %; Hematocrit (blood only) 34.9 % (37-47); Hemoglobin 11.4 g/dL (12.0-16.0); Immature Granulocytes # (auto) 0.01 K/uL (0.00-0.02); Immature Granulocytes % (auto) 0.1 %; Lymphocytes % (auto) 33.1 %; Mean Corpuscular Hemoglobin 27.7 pg (25-34); Mean Corpuscular Hgb Conc 32.7 g/dL (32-36); Mean Corpuscular Volume 84.7 fL (80-100); Mean Platelet Volume 9.3 fL (7.4-10.4); Monocytes # (auto) 0.58 K/uL (0.11-0.59); Monocytes % (auto) 7.7 %; Neutrophils # (auto) 4.24 K/uL (1.4-6.5); Platelet Count 217 K/uL (130-400); RDW Coefficient of Variation 13.6 % (11.5-14.5); RDW Standard Deviation 41.5 fL (36.4-46.3); Red Blood Count 4.12 M/uL (4.2-5.4); White Blood Count 7.56 K/uL (4.8-10.8)
[2021-08-18 06:02] LABS: Alanine Aminotransferase 12 (12-78); Albumin Level 2.9 gm/dl (3.4-5.0); Alkaline Phosphatase 53 U/L (45-117); Aspartate Aminotransferase 8 U/L (15-37); Bilirubin Direct < 0.1 mg/dl (0-0.2); Bilirubin,Total 0.4 mg/dl (0.2-1); Blood Urea Nitrogen 8 mg/dl (7-18); Carbon Dioxide 28 mmol/L (21-32); Chloride 105 mmol/L (98-107); Creatinine Clr Calc Pharmacy 126.3 ml/min; Est GFR (Non-African American) 106.1 ml/min; Glucose 162 mg/dl (70-99); Lipase 6641 U/L (73-393); Magnesium 1.9 mg/dl (1.8-2.4); Potassium 3.7 mmol/L (3.5-5.1); Sodium 138 mmol/L (136-145); Total Protein 6.8 gm/dl (6.4-8.2)
--- NOTE | 2021-08-18 07:46 | Electrocardiogram Report ---
Test Reason : Blood Pressure : / mmHG Vent. Rate : 108 BPM Atrial Rate : 108 BPM P-R Int : 122 ms QRS Dur : 082 ms QT Int : 344 ms P-R-T Axes : 041 045 055 degrees QTc Int : 460 ms Sinus tachycardia Nonspecific ST abnormality Abnormal ECG No previous ECGs available Confirmed by Flip Ray ([id number]) on 08/18/2021 7:45:46 AM Referred By: REFERRED SELF Confirmed By:Omid Ray
[2021-08-18 08:26] LABS: Estimated Average Glucose 148 mg/dl; Hemoglobin A1C 6.8 % (4.5-5.6)
--- NOTE | 2021-08-18 09:37 | Hospitalist Progress Note ---
Date of Service August 18, 2021 Assessment & Plan (1) Acute pancreatitis: Plan: This is a 55-year-old female who presents with ongoing abdominal pain and also sinus infection and found to have acute pancreatitis. 1. Abdominal pain, elevated lipase: Though on CT, it is not obvious, presenys with acute pancreatitis, etiology unclear. Will follow the lipid profile in the a.m. Will keep her n.p.o., aggressive fluids with Ringer's lactate, IV Dilaudid p.r.n., IV Zofran p.r.n. Consult GI in the a.m. for further recommendations. MRCP ordered and pt just finished the study per GI recs will allow clearliquid diet now 2. Diabetes: Sugars are running high. Will hold her home metformin and Januvia. Place on Lantus 5 units b.i.d., insulin sliding scale. Follow the blood sugars. 3. History of hypertension: At home on hydrochlorothiazide and valsartan. Will monitor the blood pressure. 4. Gastroesophageal reflux disease: Will place on IV Pepcid. 5. Hypokalemia: Will replace. Continue home potassium supplements. DVT prophylaxis: Lovenox. DISPOSITION:medical floor. full code. Admission and Anticipated Discharge Date Admission Date: August 17, 2021 Subjective Patient seen follow-up of pancreatitis, sinusitis Pt just returned from MRCP study She is sitting up in bed, in NAD Says that abd. discomfort is much improved and she feels hungry No fever, chills, chest pain, shortness of breath Review of Systems Review of Systems: All systems reviewed & are unremarkable except as noted in Subjective Physical Exam Physical Exam: GENERAL: The patient is obese, not in acute distress. HEENT: NC/AT. EOMI. Pupils equal, round and reactive to light. Oral mucosa dry. NECK: No JVD, no neck masses. CARDIOVASCULAR: S1 and S2 heard. Regular rate and rhythm. No murmur, no gallop. RESPIRATORY: Normal AP diameter. No accessory muscle use. No wheezing, no crackles. ABDOMEN: Soft, bowel sounds present. Mild epigastric tenderness. No guarding, no rigidity, no distention. NEURO: alert and oriented, speech fluent. No facial asymmetry. moves extremities. EXTREMITIES: No edema, no erythema. Results & Data Results & Data ([facility]) Vital Signs (Past 12 Hours) Vital Signs Temp Pulse Resp BP Pulse Ox 08/18/21 08:17 37.4 C 98 H 24 134/71 98 08/18/21 06:23 95 H 18 137/84 96 08/17/21 23:07 90 18 147/70 H 97 08/17/21 22:54 93 H 18 146/71 H 91 08/17/21 22:53 87 L Laboratory Results 08/18/21 08/18/21 08/18/21 Range/Units 06:43 04:36 04:36 WBC 7.56 (4.8-10.8) K/uL RBC 4.12 L (4.2-5.4) M/uL Hgb 11.4 L (12.0-16.0) g/dL Hct 34.9 L (37-47) % MCV 84.7 (80-100) fL MCH 27.7 (25-34) pg MCHC 32.7 (32-36) g/dL RDW Std Deviation 41.5 (36.4-46.3) fL RDW Coeff of Jessica 13.6 (11.5-14.5) % Plt Count 217 (130-400) K/uL MPV 9.3 (7.4-10.4) fL Immature Gran % (Auto) 0.1 % Neut % (Auto) 56.0 % Lymph % (Auto) 33.1 % [place] % (Auto) 7.7 % Eos % (Auto) 2.8 % Baso % (Auto) 0.3 % Neut # (Auto) 4.24 (1.4-6.5) K/uL Lymph # (Auto) 2.50 (1.2-3.4) K/uL [place] # (Auto) 0.58 (0.11-0.59) K/uL Eos # (Auto) 0.21 (0-0.5) K/uL Baso # (Auto) 0.02 (0-0.2) K/uL Immature Gran # (Auto) 0.01 (0.00-0.02) K/uL Sodium (136-145) mmol/L Potassium (3.5-5.1) mmol/L Chloride (98-107) mmol/L Carbon Dioxide (21-32) mmol/L Anion Gap (3-11) BUN (7-18) mg/dl Creatinine (0.6-1.2) mg/dl Est Cr Clr Drug Dosing ml/min Est GFR ( Amer) ml/min Est GFR (Non-Af Amer) ml/min BUN/Creatinine Ratio (10-20) Glucose (70-99) mg/dl POC Glucose 188 H (70-99) mg/dl Estimat Average Glucose 148 mg/dl Hemoglobin A1c 6.8 H (4.5-5.6) % Calcium (8.5-10.1) mg/dl Magnesium (1.8-2.4) mg/dl Total Bilirubin (0.2-1) mg/dl Direct Bilirubin (0-0.2) mg/dl AST (15-37) U/L ALT (12-78) Alkaline Phosphatase (45-117) U/L Total Protein (6.4-8.2) gm/dl Albumin (3.4-5.0) gm/dl Globulin (2.5-4.0) gm/dl Albumin/Globulin Ratio (0.9-2) Lipase (73-393) U/L Beta-Hydroxybutyric Acd (0.2-2.81) mg/dl Urine Color Urine Appearance (Clear) Urine pH (4.5-7.5) Ur Specific [place] (1.000-1.030) Urine Protein (Negative) Urine Glucose (UA) (Negative) Urine Ketones (Negative) Urine Blood (Negative) Urine Nitrite (Negative) Urine Bilirubin (Negative) Urine Urobilinogen (Negative) Ur Leukocyte Esterase (Negative) Urine WBC (Auto) (0-5) /hpf Urine RBC (Auto) (0-4) /hpf U Hyaline Cast (Auto) (0-5) /lpf U Epithel Cells (Auto) (0-5) /lpf Urine Bacteria (Auto) (Negative) SARS-CoV-2, RNA, NAAT (NEGATIVE) 08/18/21 08/18/21 08/17/21 Range/Units 04:36 00:24 Unknown WBC (4.8-10.8) K/uL RBC (4.2-5.4) M/uL Hgb (12.0-16.0) g/dL Hct (37-47) % MCV (80-100) fL MCH (25-34) pg MCHC (32-36) g/dL RDW Std Deviation (36.4-46.3) fL RDW Coeff of Jessica (11.5-14.5) % Plt Count (130-400) K/uL MPV (7.4-10.4) fL Immature Gran % (Auto) % Neut % (Auto) % Lymph % (Auto) % [place] % (Auto) % Eos % (Auto) % Baso % (Auto) % Neut # (Auto) (1.4-6.5) K/uL Lymph # (Auto) (1.2-3.4) K/uL [place] # (Auto) (0.11-0.59) K/uL Eos # (Auto) (0-0.5) K/uL Baso # (Auto) (0-0.2) K/uL Immature Gran # (Auto) (0.00-0.02) K/uL Sodium 138 135 L (136-145) mmol/L Potassium 3.7 D 3.2 L (3.5-5.1) mmol/L Chloride 105 99 (98-107) mmol/L Carbon Dioxide 28 29 (21-32) mmol/L Anion Gap 5.0 7.0 (3-11) BUN 8 10 (7-18) mg/dl Creatinine 0.53 L 0.77 (0.6-1.2) mg/dl Est Cr Clr Drug Dosing 126.3 86.9 ml/min Est GFR ( Amer) 123.0 100.0 ml/min Est GFR (Non-Af Amer) 106.1 86.3 ml/min BUN/Creatinine Ratio 15.0 13.6 (10-20) Glucose 162 H 307 H* (70-99) mg/dl POC Glucose 168 H (70-99) mg/dl Estimat Average Glucose mg/dl Hemoglobin A1c (4.5-5.6) % Calcium 9.0 10.0 (8.5-10.1) mg/dl Magnesium 1.9 (1.8-2.4) mg/dl Total Bilirubin 0.4 0.3 (0.2-1) mg/dl Direct Bilirubin < 0.1 (0-0.2) mg/dl AST 8 L 9 L (15-37) U/L ALT 12 16 (12-78) Alkaline Phosphatase 53 69 (45-117) U/L Total Protein 6.8 7.9 (6.4-8.2) gm/dl Albumin 2.9 L 3.5 (3.4-5.0) gm/dl Globulin 4.4 H (2.5-4.0) gm/dl Albumin/Globulin Ratio 0.8 L (0.9-2) Lipase 6641 H 84292 H (73-393) U/L Beta-Hydroxybutyric Acd (0.2-2.81) mg/dl Urine Color Urine Appearance (Clear) Urine pH (4.5-7.5) Ur Specific [place] (1.000-1.030) Urine Protein (Negative) Urine Glucose (UA) (Negative) Urine Ketones (Negative) Urine Blood (Negative) Urine Nitrite (Negative) Urine Bilirubin (Negative) Urine Urobilinogen (Negative) Ur Leukocyte Esterase (Negative) Urine WBC (Auto) (0-5) /hpf Urine RBC (Auto) (0-4) /hpf U Hyaline Cast (Auto) (0-5) /lpf U Epithel Cells (Auto) (0-5) /lpf Urine Bacteria (Auto) (Negative) SARS-CoV-2, RNA, NAAT (NEGATIVE) 08/17/21 08/17/21 08/17/21 Range/Units Unknown 17:40 17:00 WBC 7.75 (4.8-10.8) K/uL RBC 4.55 (4.2-5.4) M/uL Hgb 12.8 (12.0-16.0) g/dL Hct 37.8 (37-47) % MCV 83.1 (80-100) fL MCH 28.1 (25-34) pg MCHC 33.9 (32-36) g/dL RDW Std Deviation 40.6 (36.4-46.3) fL RDW Coeff of Jessica 13.5 (11.5-14.5) % Plt Count 263 (130-400) K/uL MPV 9.3 (7.4-10.4) fL Immature Gran % (Auto) 0.1 % Neut % (Auto) 66.0 % Lymph % (Auto) 26.2 % [place] % (Auto) 4.4 % Eos % (Auto) 3.0 % Baso % (Auto) 0.3 % Neut # (Auto) 5.12 (1.4-6.5) K/uL Lymph # (Auto) 2.03 (1.2-3.4) K/uL [place] # (Auto) 0.34 (0.11-0.59) K/uL Eos # (Auto) 0.23 (0-0.5) K/uL Baso # (Auto) 0.02 (0-0.2) K/uL Immature Gran # (Auto) 0.01 (0.00-0.02) K/uL Sodium (136-145) mmol/L Potassium (3.5-5.1) mmol/L Chloride (98-107) mmol/L Carbon Dioxide (21-32) mmol/L Anion Gap (3-11) BUN (7-18) mg/dl Creatinine (0.6-1.2) mg/dl Est Cr Clr Drug Dosing ml/min Est GFR ( Amer) ml/min Est GFR (Non-Af Amer) ml/min BUN/Creatinine Ratio (10-20) Glucose (70-99) mg/dl POC Glucose (70-99) mg/dl Estimat Average Glucose mg/dl Hemoglobin A1c (4.5-5.6) % Calcium (8.5-10.1) mg/dl Magnesium (1.8-2.4) mg/dl Total Bilirubin (0.2-1) mg/dl Direct Bilirubin (0-0.2) mg/dl AST (15-37) U/L ALT (12-78) Alkaline Phosphatase (45-117) U/L Total Protein (6.4-8.2) gm/dl Albumin (3.4-5.0) gm/dl Globulin (2.5-4.0) gm/dl Albumin/Globulin Ratio (0.9-2) Lipase (73-393) U/L Beta-Hydroxybutyric Acd (0.2-2.81) mg/dl Urine Color Yellow Urine Appearance Clear (Clear) Urine pH 5.5 (4.5-7.5) Ur Specific [place] 1.021 (1.000-1.030) Urine Protein Negative (Negative) Urine Glucose (UA) Trace H (Negative) Urine Ketones Negative (Negative) Urine Blood Negative (Negative) Urine Nitrite Negative (Negative) Urine Bilirubin Negative (Negative) Urine Urobilinogen Negative (Negative) Ur Leukocyte Esterase Trace H (Negative) Urine WBC (Auto) 1-5 (0-5) /hpf Urine RBC (Auto) 0-4 (0-4) /hpf U Hyaline Cast (Auto) 0 (0-5) /lpf U Epithel Cells (Auto) 5-10 H (0-5) /lpf Urine Bacteria (Auto) Negative (Negative) SARS-CoV-2, RNA, NAAT NEGATIVE (NEGATIVE) Medications Administered Current Inpatient Medications Acetaminophen (Acetaminophen 325 Mg Tab) 650 mg PO Q4H PRN PRN Reason: pain/fever Stop: 09/16/21 23:06 Aspirin (Aspirin 81 Mg Ectab) 81 mg PO DAILY [facility] Stop: 09/17/21 08:59 Enoxaparin Sodium (Enoxaparin Inj 40 Mg/0.4 Ml Syr) 40 mg SQ HS [facility] Stop: 09/16/21 23:14 Last Admin: 08/18/21 00:33 Dose: 40 mg Documented by: Hydrochlorothiazide (Hydrochlorothiazide 25 Mg Tab) 25 mg PO DAILY [facility] Stop: 09/17/21 08:59 Hydromorphone HCl (Hydromorphone Inj 0.5 Mg/0.5 Ml Syr) 0.5 mg IV Q3H PRN PRN Reason: Pain Stop: 08/31/21 23:06 Lactated Ringer's (Lr) 1,000 mls @ 200 mls/hr IV .Q5H [facility] Stop: 09/16/21 23:06 Last Admin: 08/18/21 01:09 Dose: 200 mls/hr Documented by: Famotidine 20 mg/ Syringe 5 mls @ 2.5 mls/min IV BID [facility]ACK Stop: 09/16/21 23:06 Last Admin: 08/18/21 00:26 Dose: 2.5 mls/min Documented by: Ampicillin Sodium/Sulbactam Sodium 1,500 mg/ Sodium Chloride 104 mls @ 200 mls/hr IV Q6 [facility]; Protocol Stop: 08/27/21 23:14 Last Infusion: 08/18/21 09:03 Dose: Infused Documented by: Insulin Aspart (Insulin Aspart Per Unit) 0 units SC Q6 [facility] Stop: 09/16/21 23:29 Last Admin: 08/18/21 07:14 Dose: 3 units Documented by: Insulin Glargine (Insulin Glargine Solostar 100 Units/Ml 3 Ml Pen) 5 units SC BID [facility] Stop: 09/16/21 23:29 Last Admin: 08/18/21 00:58 Dose: 5 units Documented by: Ondansetron HCl (Ondansetron Inj 2 Mg/Ml 2 Ml Vial) 4 mg IV Q6H PRN PRN Reason: Nausea Stop: 09/16/21 23:06 Potassium Chloride (Potassium Chloride 10 Meq Tabcr) 10 meq PO DAILY [facility] Stop: 09/17/21 08:59 Simvastatin (Simvastatin 40 Mg Tab) 40 mg PO QAM [facility] Stop: 09/17/21 08:59 Valsartan (Valsartan 80 Mg Tab) 80 mg PO DAILY [facility] Stop: 09/17/21 08:59
[2021-08-18] MEDS: POTASSIUM CHLORIDE 10 MEQ TABCR PO SCH (10:14)
[2021-08-18] MEDS: ASPIRIN 81 MG ECTAB PO SCH (10:14)
[2021-08-18] MEDS: hydroCHLOROthiazide 25 MG TAB PO SCH (10:31)
[2021-08-18] MEDS: VALSARTAN 80 MG TAB PO SCH (10:31)
[2021-08-18] MEDS: SIMVASTATIN 40 MG TAB PO SCH (10:31)
--- NOTE | 2021-08-18 11:51 | Gastrointestinal Consultation ---
Date of Consultation August 18, 2021 Assessment & Plan (1) Acute pancreatitis: No clear etiology for acute pancreatitis. Considered GS panc as this is common. Pt denies significant ETOH intake recently or in the past. Not a smoker. This is her initial episode of pancreatiti. MRCP to verify no choledocholithiasis LR at 200 - may decrease to 125/hr (after MRCP). Clear liquids po (after MRCP) Supervising Physician Co-Signing Physician Notes Attg add: I interviewed and examined pt, reviewed chart and labs. Pt with intermittent post prandial abdominal pain since June, admit with worsening abdominal pain since fatty meal at [place]. At present, her pain is markedly less, she has flatus and return of hunger. On exam, she appears comfortable, mild abd tenderness. Hgb 12--> 11, BUN < 10, LFT's WNL. CT shows no ajay dil, ? fatty replacement of panc vs sausage shaped panc. No tob/alcohol, no FH panc, no MJ, on Januvia, also metformin and HCTZ which are chronic meds. A/P: Pancreatitis, unclear cause - Likely biliary panc given h/o post-prandial pain vs med induced (januvia, metformin, HCTZ), although none of the meds are recent. Check trigs, consider autoimmune serologies. Hydration overnight and diet as tolerated. MRCP to look for biliary obstruction, divisum; will need outpt EUS in 1 month. History of Present Illness Reason for Consultation: Pancreatitis Requesting Physician: Dr. Wilson Attending Physician: Yoandy De Jesus MD History of Present Illness Ms. Katiuska Parham is a 55-year-old female with hx DM2, obesity, other as below who presented to the ED yesterday for an elevated D -Dimer which was ordered as an and results were provided for her yesterday. She reports that she had the onset of diffuse/upper abd pain radiating around to her mid back,w bloating about 3 wks ago with the most severe being on Sat evening. She has had nausea w/o vomiting, denies jaundice or dark urine. She had a temp to 99.9 recently. On arrival, lipase > 10,000 ->6,000 today. No LFT elevation. CTAP with IV contrast w/o any significant abnormalities. She is awake, alert, oriented, hemodynamically stable and currently comfortable though has mild RUQ tenderness on exam. Allergies Allergy/AdvReac Type Severity Reaction Status Date / Time lisinopril Allergy Unknown hives Verified 08/17/21 17:10 Sulfa (Sulfonamide Allergy Unknown itchy Verified 08/17/21 17:10 Antibiotics) Home Medications Medication Instructions Recorded Confirmed Type famotidine 40 mg tablet 40 mg PO BID #0 tab 05/01/12 08/17/21 History hydrochlorothiazide 25 mg tablet 25 mg PO DAILY #0 tab 05/01/12 08/17/21 History simvastatin 40 mg tablet 40 mg PO QAM #0 tab 05/01/12 08/17/21 History metformin 500 mg tablet,extended 2,000 mg PO PM #0 tab 03/14/17 08/17/21 History release 24hr potassium chloride 10 mEq 10 meq PO DAILY #0 cap 03/14/17 08/17/21 History capsule,extended release aspirin 81 mg tablet,delayed 81 mg PO DAILY 08/17/21 08/17/21 History release sitagliptin 100 mg tablet (Januvia) 100 mg PO DAILY 08/17/21 08/17/21 History valsartan 80 mg tablet 80 mg PO DAILY 08/17/21 08/17/21 History Patient History Medical History (Updated 08/17/21 @ 18:49 by Zulay Ortiz) Diabetes Diverticulitis Diverticulosis Dyslipidemia GERD (gastroesophageal reflux disease) Hypertension Surgical History (Updated 08/17/21 @ 18:48 by Zulay Ortiz) No history of previous surgery Social History Smoking Status: Never smoker Preferred Language: Japanese Feels Safe at Home: Yes Review of Systems Review of Systems: ROS: Gen: Denies weakness, fevers, weight loss Eyes: No eye redness, or pain, no recent vision changes Resp: No SOB, no cough Cardio: No palpitations/irregular beats, no chest pain GI: as per HPI, otherwise (-) : Denies pain on urination Skin: No jaundice, itching or new rashes Physical Exam Constitutional: well developed and cooperative obese Eyes: PERRL, conjunctivae normal, anicteric sclerae Respiratory: normal respiratory effort, lungs clear to auscultation Cardiovascular: RRR, no murmur, no edema Gastrointestinal (Abdomen): Percussion/Palpation: abdomen soft; no guarding and abdomen not rigid mild RUQ/epigastric tenderness Skin: no rashes, warm and dry normal turgor Neurologic: PERRL, EOMI, accommodation nl, no face palsy, no dysarthria awake; not confused Psychiatric: A+Ox3, euthymic affect Orientation: alert, oriented x 3 and cooperative Lymphatic: no cervical or axillary lymphadenopathy Results & Data ([facility]) Vital Signs (Past 12 Hours) Vital Signs Temp Pulse Resp BP Pulse Ox 08/18/21 11:47 37.9 C H 93 H 15 142/69 H 97 08/18/21 08:17 37.4 C 98 H 24 134/71 98 08/18/21 06:23 95 H 18 137/84 96 Laboratory Results WBC 4.12, Hb 11, Hct 34, Plts 217, Na 138, K 3.7, Cl 105, Na 138, K 3.7, Cl 105, BUN 8, Cr 0.5, plts 162. T Bili 0.4, AST 8, ALT 12, ALk Phos 53, Lipase 6641. Diagnostic Findings CTAP w IV contrast 08/17/21: 1. No CT evidence for pancreatitis. 2. Small sliding-type hiatal hernia. 3. Diverticulosis without evidence for diverticulitis. 4. Additional nonacute findings as delineated above.
--- NOTE | 2021-08-18 18:21 | Magnetic Resonance Report ---
MRCP CLINICAL HISTORY: Pancreatitis. COMPARISON STUDY: Abdominal CT dated 08/17/2021. TECHNIQUE: Abdominal MRCP is performed utilizing various T2-weighted sequences in the axial and coron al planes. IV contrast was not administered for this examination. 3-D reformats are created and asses sed. FINDINGS: The gallbladder is normal as visualized with no gallstones identified. There is no intra or extrahepa tic biliary ductal dilatation. The common bile duct measures up to 7 mm. There are no intraluminal fi lling defects to suggest choledocholithiasis. There is prominence of the pancreatic duct which measur es up to 4 mm in diameter. The pancreatic duct is normal in configuration. The unenhanced liver, spleen, pancreas, adrenal glands, and kidneys are grossly normal. There is no a bdominal ascites. The abdominal aorta is normal in caliber. There is no evidence of bowel obstruction . No abdominal lymphadenopathy is identified. No pleural effusion is seen. IMPRESSION: 1. There is mild nonspecific prominence of the pancreatic duct. 2. Otherwise normal MRCP. No gallstones are identified and there is no evidence of choledocholithiasi s. 3. There is no MRI evidence of acute pancreatitis. Dictated: 08/18/2021 5:41 PM Transcribed: 08/18/2021 6:16 PM Gretchen [id number] DENISE_Laverne Electronically signed by: Hiram Jackson M.D. 08/18/2021 6:20 PM
[2021-08-19] MEDS: AMPICILLIN/SULBACTAM SOD 1,500 MG in 0.9 % SODIUM CHLORIDE 100 ML IV SCH ×3 (00:07→12:18)
[2021-08-19] MEDS: LACTATED RINGER'S 1,000 ML IV SCH (06:26)
[2021-08-19 07:32] LABS: Hematocrit (blood only) 32.6 % (37-47); Hemoglobin 10.7 g/dL (12.0-16.0); Mean Corpuscular Hemoglobin 27.2 pg (25-34); Mean Corpuscular Hgb Conc 32.8 g/dL (32-36); Mean Platelet Volume 9.5 fL (7.4-10.4); Platelet Count 189 K/uL (130-400); RDW Coefficient of Variation 13.2 % (11.5-14.5); RDW Standard Deviation 40.3 fL (36.4-46.3); Red Blood Count 3.93 M/uL (4.2-5.4); White Blood Count 6.27 K/uL (4.8-10.8)
[2021-08-19 08:04] LABS: Albumin Level 2.6 gm/dl (3.4-5.0); BUN Creatinine Ratio 11.6 (10-20); Creatinine Clr Calc Pharmacy 128.7 ml/min; Est GFR (African American) 123.8 ml/min; Est GFR (Non-African American) 106.8 ml/min; Magnesium 1.8 mg/dl (1.8-2.4); Potassium 3.5 mmol/L (3.5-5.1)
[2021-08-19 08:07] LABS: Albumin Globulin Ratio 0.7 (0.9-2); Globulin 3.7 gm/dl (2.5-4.0); Phosphorus 4.3 mg/dl (2.5-4.9); Total Protein 6.3 gm/dl (6.4-8.2)
[2021-08-19] MEDS: FAMOTIDINE 20 MG in SYRINGE 3 ML IV SCH (08:09)
[2021-08-19] MEDS: VALSARTAN 80 MG TAB PO SCH (08:10)
[2021-08-19] MEDS: SIMVASTATIN 40 MG TAB PO SCH (08:10)
[2021-08-19] MEDS: hydroCHLOROthiazide 25 MG TAB PO SCH (08:10)
[2021-08-19] MEDS: POTASSIUM CHLORIDE 10 MEQ TABCR PO SCH (08:10)
[2021-08-19 08:37] LABS: Bilirubin,Total 0.3 mg/dl (0.2-1)
[2021-08-19] MEDS: INSULIN ASPART PER UNIT SC SCH ×4 (09:07→21:16)
[2021-08-19] MEDS: INSULIN GLARGINE SOLOSTAR 100 UNITS/ML 3 ML PEN SC SCH ×2 (09:08→21:10)
--- NOTE | 2021-08-19 09:10 | Communication Note ---
Date of Service: August 19, 2021 ATTENDING ADDENDUM: 55 yo F with acute epigastric cramping who presented to the hospital with an elevated D-dimer checked in the urgent care clinic. She went there for pain in the bridge of her nose associated with eye pain and "goopy drainage." She was given eye drops with abx and steroid in them and feels better. She was also give a zpack for "sinusitis" however, reports no sinus tenderness or nasal drainage, congestion or fever. Retrospectively, she feels she may have used some old makeup before the onset of eye irritation which is now better. She reports her abdominal pain is improved on the clear diet, although she reports just a "twinge" of pain after dinner last night. Epigastric cramping has been ongoing for the past 1 month and is not associated with nausea. Some loose stools have been reported and are ongoing. Denies any mucus or blood in stools. Denies any bloating. Reports a similar episode 4-5 years ago prompting an outpatient GI workup including an EGD and gastric emptying study, which was when she reports being diagnosed with diabetes. At that time studies were normal per her report and she states there was more nausea and bloating affecting her. MRCP yesterday reveals no gallstones, however, there is a "prominence" to the pancreatic duct. This was discussed with her and may be further elucidated by Klaus DENIS in the outpatient setting which which is the current plan in 4 weeks time. Today would cont with clear diet until ready to advance diet, cont treating pain or nausea as tolerated, although this seems to be more controlled. Would stop Unasyn and provide which is improved. There does not appear to be an indication for systemic antibiotics and this may be contributing to her diarrhea. Would stop IVF and see how she feels. Will discuss plan with BERONICA rounding provider. DO Jong
--- NOTE | 2021-08-19 10:13 | Gastroenterology Progress Note ---
Date of Service August 19, 2021 Assessment & Plan (1) Acute pancreatitis: Plan: Initial episode of acute, uncomplicated pancreatitis, unclear etiology. Advance diet to full liquids for lunch, if does well may advance to soft, low fat. Plan for OP EUS. Our office will call to arrange. Regarding cause of pancreatitis, no hx of increased alcohol intake, no hx of gallbladder dx and no stones/sludge on imaging and LFTs not elevated. No new meds. There is a fam hx of Crohn's and other autoimmune dx - would consider autoimmune serology if no sludge on EUS and/or if second episode occurs. Admission and Anticipated Discharge Date Admission Date: August 17, 2021 Supervising Physician Co-Signing Physician Notes Attg add: I interviewed and examined pt, reviewed chart and labs. Pt with very mild pain, jackson PO, passing flatus. VS unremarkable. Trigs 227. Pancreatitis - DDX = Med induced, biliary, other. Hold Januvia, plan outpt EUS. Pancreas appears mildly full on CT - plan autoimmune w/u if pancreatitis is recurrent. Subjective 55, female abd pain x 3-4 weeks, severe pain across upper abd on 08/16 - much improved since then, just mild discomfort on palpation today. Lipase 10K->6k yesterday, not checked today. LFTs have been normal. MRCP today with mild prominence of the pancreatic duct. Taking clear liquids po w/o any nausea/vomiting or increasing pain. Passes a small loose/liquid BM this morning. Passing gas. Review of Systems Review of Systems: ROS: (since arrival) Gen: Denies weakness, fevers, weight loss Eyes: No eye redness, or pain, no recent vision changes Resp: No SOB, no cough Cardio: No palpitations/irregular beats, no chest pain GI: See HPI, otherwise (-). : Denies pain on urination Skin: No jaundice, itching or new rashes Physical Exam Constitutional: well developed and cooperative Eyes: PERRL, conjunctivae normal, anicteric sclerae Respiratory: normal respiratory effort, lungs clear to auscultation Cardiovascular: RRR, no murmur, no edema Gastrointestinal (Abdomen): Inspection/Auscultation: abdomen normal to inspection and normal bowel sounds; abdomen not distended P ercussion/Palpation: + abdomen tender (epigastric area, mild) and abdomen soft; no hepatosplenomegaly and no hernia Skin: no rashes, warm and dry normal turgor Neurologic: PERRL, EOMI, accommodation nl, no face palsy, no dysarthria awake; not confused Psychiatric: A+Ox3, euthymic affect Orientation: alert, oriented x 3 and cooperative Results & Data ([facility]) Vital Signs (Past 12 Hours) Vital Signs Temp Pulse Resp BP Pulse Ox 08/19/21 07:19 36.9 C 83 16 122/73 94 08/18/21 22:41 37.1 C 81 16 119/69 95 Laboratory Results WBC 5, Hb 10, Hct 32, Plts 189, Na 140, K 3.5, Cl 105, CO2 27, BUN 6, Cr 0.5, glucose 164. T Bili 0.3, AST 13, ALT 14, Alk Phos 47 Lipase yesterday >6000 Diagnostic Findings MRCP 08/18: 1. There is mild nonspecific prominence of the pancreatic duct. 2. Otherwise normal MRCP. No gallstones are identified and there is no evidence of choledocholithiasis. 3. There is no MRI evidence of acute pancreatitis. CTAP w IV 08/17: 1. No CT evidence for pancreatitis. 2. Small sliding-type hiatal hernia. 3. Diverticulosis without evidence for diverticulitis. 4. Additional nonacute findings as delineated above.
[2021-08-19] MEDS: ASPIRIN 81 MG ECTAB PO SCH (10:37)
--- NOTE | 2021-08-19 14:18 | Hospitalist Progress Note ---
Date of Service August 19, 2021 Assessment & Plan (1) Acute pancreatitis: Plan: 55-year-old female with past medical history significant for type 2 diabetes, hyperlipidemia, hypertension, GERD, obesity, who presented with ongoing abdominal pain. Was also being treated for acute sinusitis as an outpatient. Pancreatitis Presented with lipase 10,000 --> improved to 6000 on 08/18 CT ABD/pelvis unremarkable Etiology of acute pancreatitis unclear -no history of alcohol use, MRCP unremarkable for gallstone pancreatitis, no recent new medications Patient improved with IVF and bowel rest GI consulted, planning on outpatient EUS Advance to full liquid diet, if patient tolerates, will advance to a soft, low- fat diet Likely discharge home tomorrow DM type II Hgb A1c 6.8 Hold oral agents and utilizing Lantus and NovoLog per protocol while hospitalized Noted that patient is on sitagliptin as an outpatient, this medication is known to be a possible cause of pancreatitis however it is not a new medication for the patient. Would recommending continuing at discharge. HTN BP controlled, continue HCTZ and valsartan Noted that HCTZ is also known to be a possible cause of pancreatitis however not a new medication for the patient. Would recommend continuing discharge. DVT prophylaxis: Lovenox Admission and Anticipated Discharge Date Admission Date: August 17, 2021 Supervising Physician Co-Signing Physician Notes I have seen and examined the patient and have discussed the case with the provider above. I agree with the assessment and plan as stated. 55 yo F with acute epigastric cramping who presented to the hospital with an elevated D-dimer checked in the urgent care clinic. She went there for pain in the bridge of her nose associated with eye pain and "goopy drainage." She was given eye drops with abx and steroid in them and feels better. She was also give a zpack for "sinusitis" however, reports no sinus tenderness or nasal drainage, congestion or fever. Retrospectively, she feels she may have used che e old makeup before the onset of eye irritation which is now better. She reports her abdominal pain is improved on the clear diet, although she reports just a "twinge" of pain after dinner last night. Epigastric cramping has been ongoing for the past 1 month and is not associated with nausea. Some loose stools have been reported and are ongoing. Denies any mucus or blood in stools. Denies any bloating. Reports a similar episode 4-5 years ago prompting an outpatient GI workup including an EGD and gastric emptying study, which was when she reports being diagnosed with diabetes. At that time studies were normal per her report and she states there was more nausea and bloating affecting her. MRCP yesterday reveals no gallstones, however, there is a "prominence" to the pancreatic duct. This was discussed with her and may be further elucidated by EUS in the outpatient setting which which is the current plan in 4 weeks time. Today would cont with clear diet until ready to advance diet, cont treating pain or nausea as tolerated, although this seems to be more controlled. Wouldstop Unasynand provide which is improved. There does not appear to be an indication for systemic antibiotics and this may be contributing to her diarrhea. Wouldstop IVFand see how she feels. Will discuss plan with BERONICA rounding provider. Jong, Subjective Patient seen and examined. Follow-up for pancreatitis. Reports improvement in abdominal pain, however still having some epigastric pres sure. Overall tolerating clear liquids. No nausea or vomiting. Review of Systems Review of Systems: ROS per HPI, all other systems reviewed and negative Physical Exam Constitutional: WD/WN, vitals as above Respiratory: normal respiratory effort, lungs clear to auscultation Cardiovascular: Rate/Rhythm: regular rate and regular rhythm Extremities: no edema Gastrointestinal (Abdomen): Inspection/Auscultation: abdomen not distended Percussion/Palpation: + abdomen tender (Mild epigastric) and abdomen soft Skin: no rashes, warm and dry Neurologic: no focal motor deficits Psychiatric: A+Ox3, euthymic affect Results & Data Results & Data ([facility]) Vital Signs (Past 12 Hours) Vital Signs Temp Pulse Resp BP Pulse Ox 08/19/21 13:35 90 149/81 H 08/19/21 07:19 36.9 C 83 16 122/73 94 Laboratory Results Short CBC 08/19/21 Range/Units 06:59 WBC 6.27 (4.8-10.8) K/uL Hgb 10.7 L (12.0-16.0) g/dL Hct 32.6 L (37-47) % Plt Count 189 (130-400) K/uL BMP 08/19/21 06:59 Sodium 140 Potassium 3.5 Chloride 105 Carbon Dioxide 27 BUN 6 L Creatinine 0.52 L Glucose 164 H Calcium 9.0 Liver Function 08/19/21 Range/Units 06:59 Total Bilirubin 0.3 (0.2-1) mg/dl AST 13 L (15-37) U/L ALT 14 (12-78) Alkaline Phosphatase 47 (45-117) U/L Albumin 2.6 L (3.4-5.0) gm/dl
[2021-08-19] MEDS: NEOMYCIN/POLYMYXIN/DEXAMETHA OP OINT 3.5 GM TUBE OP SCH ×2 (14:35→21:11)
[2021-08-19] MEDS: ENOXAPARIN INJ 40 MG/0.4 ML SYR SQ SCH (21:08)
[2021-08-19] MEDS: FAMOTIDINE 40 MG TABLET PO SCH (21:24)
[2021-08-20] MEDS: OXYMETAZOLINE 0.05% 30 ML BTL PRN ×2 (00:53→07:50)
[2021-08-20 07:41] LABS: Hematocrit (blood only) 34.7 % (37-47); Hemoglobin 11.8 g/dL (12.0-16.0); Mean Corpuscular Volume 82.2 fL (80-100); Platelet Count 232 K/uL (130-400); RDW Coefficient of Variation 13.1 % (11.5-14.5); RDW Standard Deviation 39.7 fL (36.4-46.3); Red Blood Count 4.22 M/uL (4.2-5.4); White Blood Count 7.23 K/uL (4.8-10.8)
[2021-08-20] MEDS: ASPIRIN 81 MG ECTAB PO SCH (07:50)
[2021-08-20] MEDS: FAMOTIDINE 40 MG TABLET PO SCH (07:50)
[2021-08-20] MEDS: SIMVASTATIN 40 MG TAB PO SCH (07:50)
[2021-08-20] MEDS: hydroCHLOROthiazide 25 MG TAB PO SCH (07:50)
[2021-08-20] MEDS: POTASSIUM CHLORIDE 10 MEQ TABCR PO SCH (07:53)
[2021-08-20] MEDS: NEOMYCIN/POLYMYXIN/DEXAMETHA OP OINT 3.5 GM TUBE OP SCH ×2 (07:54→13:13)
[2021-08-20] MEDS: INSULIN ASPART PER UNIT SC SCH ×2 (09:04→12:48)
[2021-08-20 09:05] LABS: Albumin Globulin Ratio 0.7 (0.9-2); Albumin Level 2.9 gm/dl (3.4-5.0); BUN Creatinine Ratio 9.6 (10-20); Bilirubin,Total 0.3 mg/dl (0.2-1); Calcium 9.9 mg/dl (8.5-10.1); Creatinine Clr Calc Pharmacy 104.6 ml/min; Est GFR (African American) 115.6 ml/min; Est GFR (Non-African American) 99.8 ml/min; Globulin 4.2 gm/dl (2.5-4.0); Potassium 3.5 mmol/L (3.5-5.1); Total Protein 7.1 gm/dl (6.4-8.2)
[2021-08-20] MEDS: INSULIN GLARGINE SOLOSTAR 100 UNITS/ML 3 ML PEN SC SCH (09:06)
[2021-08-20] MEDS: VALSARTAN 80 MG TAB PO SCH (10:19)
--- NOTE | 2021-08-20 13:28 | Discharge Summary ---
Date of Service August 20, 2021 Admission HPI Per Admitting Provider HISTORY OF PRESENT ILLNESS: This is a 55-year-old female with past medical history significant for type 2 diabetes, hyperlipidemia, hypertension, GERD, obesity, who presents with ongoing abdominal pain. She is having abdominal pain for the last 3 weeks on and off in the epigastric region. Last night, it was severe. She also went to outpatient clinic for sinus infection and they did lab work and D-dimer came elevated and she was advised to come to the ER and CTA chest unremarkable. But in the ER, CT of abdomen and pelvis was okay, but lipase was vry high. She is complaining of on and off abdominal pain for the last 3 weeks, also some nausea and not able to eat much because of pain. Denies any diarrhea or constipation. Stools are somewhat loose, but no blood in the stools. No burning micturition, no swelling in the legs. No chest pain, no shortness of breath. Has some runny nose from her sinuses and she has some pain in her maxillary and nasal region, Denies any headache. No blurred visions, no earache, no sore throat, no cough. She felt somewhat feverish today. Currently, resting comfortably and hemodynamically stable. Admission Exam Per Admitting Provider PHYSICAL EXAMINATION: GENERAL: The patient is obese, not in acute distress. VITAL SIGNS: Temperature 36.9, pulse 98, respiratory rate 18, blood pressure 171/96, oxygen 98% on room air. HEENT: Pupils equal, round and reactive to light. Oral mucosa dry. NECK: No JVD, no neck masses. CARDIOVASCULAR: S1 and S2 heard. Regular rate and rhythm. No murmur, no gallop. RESPIRATORY SYSTEM: Normal AP diameter. No accessory muscle use. No wheezing, no crackles. ABDOMEN: Soft, bowel sounds present. Mild epigastric tenderness. No guarding, no rigidity, no distention. CENTRAL NERVOUS SYSTEM: Cranial nerves II-XII grossly intact, nonfocal. EXTREMITIES: No edema, no erythema. Principal Diagnosis acute pancreatitis Discharge Exam CONSTITUTIONAL: obese, vitals stable, NAD EYES: normal conjunctivae, no scleral icterus ENT: external ear and nose normal, MMM NECK: trachea midline, RESPIRATORY: clear to auscultation bilaterally, no crackles, rales or wheezes, normal respiratory effort CARDIOVASCULAR: regular rate and rhythm, S1 and 2 heard without murmurs, gallops or rubs, no JVD, no peripheral edema GASTROINTESTINAL: soft, nontender, ND, no guarding MUSCULOSKELETAL: strength 5/5 throughout, head is normocephalic and atraumatic, neck supple, SKIN: warm and dry, NEUROLOGIC: CN 2-12 grossly intact, no sensory deficit, normal cognition, normal speech, no tremor PSYCHIATRIC: alert cooperative and oriented to person, place and time. Discharge Data Allergies Allergy/AdvReac Type Severity Reaction Status Date / Time lisinopril Allergy Unknown hives Verified 08/17/21 17:10 Sulfa (Sulfonamide Allergy Unknown itchy Verified 08/17/21 17:10 Antibiotics) Consultations 08/17/21 19:34 ED Decision to Admit Stat 08/18/21 08:00 Consult Gastroenterology Routine Ordered Studies Laboratory Results WBC 7.23 K/uL (4.8-10.8) 08/20/21 07: RBC 4.22 M/uL (4.2-5.4) 08/20/21 07: Hgb 11.8 g/dL (12.0-16.0) L 08/20/21 07:29 Hct 34.7 % (37-47) L 08/20/21 07: MCV 82.2 fL (80-100) 08/20/21 07: MCH 28.0 pg (25-34) 08/20/21 07: MCHC 34.0 g/dL (32-36) 08/20/21 07:29 RDW Std Deviation 39.7 fL (36.4-46.3) 08/20/21 07:29 RDW Coeff of Jessica 13.1 % (11.5-14.5) 08/20/21 07:29 Plt Count 232 K/uL (130-400) 08/20/21 07: MPV 9.0 fL (7.4-10.4) 08/20/21 07:29 Immature Gran % (Auto) 0.1 % 08/18/21 04:36 Neut % (Auto) 56.0 % 08/18/21 04:36 Lymph % (Auto) 33.1 % 08/18/21 04:36 [place] % (Auto) 7.7 % 08/18/21 04:36 Eos % (Auto) 2.8 % 08/18/21 04:36 Baso % (Auto) 0.3 % 08/18/21 04:36 Neut # (Auto) 4.24 K/uL (1.4-6.5) 08/18/21 04:36 Lymph # (Auto) 2.50 K/uL (1.2-3.4) 08/18/21 04:36 [place] # (Auto) 0.58 K/uL (0.11-0.59) 08/18/21 04:36 Eos # (Auto) 0.21 K/uL (0-0.5) 08/18/21 04:36 Baso # (Auto) 0.02 K/uL (0-0.2) 08/18/21 04:36 Immature Gran # (Auto) 0.01 K/uL (0.00-0.02) 08/18/21 04:36 Sodium 139 mmol/L (136-145) 08/20/21 07:29 Potassium 3.5 mmol/L (3.5-5.1) 08/20/21 07:29 Chloride 105 mmol/L (98-107) 08/20/21 07:29 Carbon Dioxide 27 mmol/L (21-32) 08/20/21 07:29 Anion Gap 7.0 (3-11) 08/20/21 07:29 BUN 6 mg/dl (7-18) L 08/20/21 07:29 Creatinine 0.64 mg/dl (0.6-1.2) 08/20/21 07:29 Est Cr Clr Drug Dosing 104.6 ml/min 08/20/21 07:29 Est GFR ( Amer) 115.6 ml/min 08/20/21 07:29 Est GFR (Non-Af Amer) 99.8 ml/min 08/20/21 07:29 BUN/Creatinine Ratio 9.6 (10-20) L 08/20/21 07:29 Glucose 166 mg/dl (70-99) H 08/20/21 07:29 POC Glucose 220 mg/dl (70-99) H 08/20/21 12:01 Estimat Average Glucose 148 mg/dl 08/18/21 04:36 Hemoglobin A1c 6.8 % (4.5-5.6) H 08/18/21 04:36 Calcium 9.9 mg/dl (8.5-10.1) 08/20/21 07:29 Phosphorus 4.3 mg/dl (2.5-4.9) 08/19/21 06:59 Magnesium 1.8 mg/dl (1.8-2.4) 08/19/21 06:59 Total Bilirubin 0.3 mg/dl (0.2-1) 08/20/21 07:29 Direct Bilirubin < 0.1 mg/dl (0-0.2) 08/18/21 04:36 AST 10 U/L (15-37) L 08/20/21 07:29 ALT 15 (12-78) 08/20/21 07:29 Alkaline Phosphatase 55 U/L (45-117) 08/20/21 07:29 Total Protein 7.1 gm/dl (6.4-8.2) 08/20/21 07:29 Albumin 2.9 gm/dl (3.4-5.0) L 08/20/21 07:29 Globulin 4.2 gm/dl (2.5-4.0) H 08/20/21 07:29 Albumin/Globulin Ratio 0.7 (0.9-2) L 08/20/21 07:29 Triglycerides 227 mg/dl (0-150) H 08/18/21 04:36 Lipase 6641 U/L (73-393) H 08/18/21 04:36 Beta-Hydroxybutyric Acd mg/dl (0.2-2.81) 08/17/21 Unknown Urine Color Yellow 08/17/21 17:40 Urine Appearance Clear (Clear) 08/17/21 17:40 Urine pH 5.5 (4.5-7.5) 08/17/21 17:40 Ur Specific [place] 1.021 (1.000-1.030) 08/17/21 17:40 Urine Protein Negative (Negative) 08/17/21 17:40 Urine Glucose (UA) Trace (Negative) H 08/17/21 17:40 Urine Ketones Negative (Negative) 08/17/21 17:40 Urine Blood Negative (Negative) 08/17/21 17:40 Urine Nitrite Negative (Negative) 08/17/21 17:40 Urine Bilirubin Negative (Negative) 08/17/21 17:40 Urine Urobilinogen Negative (Negative) 08/17/21 17:40 Ur Leukocyte Esterase Trace (Negative) H 08/17/21 17:40 Urine WBC (Auto) 1-5 /hpf (0-5) 08/17/21 17:40 Urine RBC (Auto) 0-4 /hpf (0-4) 08/17/21 17:40 U Hyaline Cast (Auto) 0 /lpf (0-5) 08/17/21 17:40 U Epithel Cells (Auto) 5-10 /lpf (0-5) H 08/17/21 17:40 Urine Bacteria (Auto) Negative (Negative) 08/17/21 17:40 SARS-CoV-2, RNA, NAAT NEGATIVE (NEGATIVE) 08/17/21 17:00 Impressions Abdomen/Pelvis CT 08/17/21 16:52 CT abd pelvis IV con only CLINICAL HISTORY: epigastric pain, elevated lipase COMPARISON STUDY: 03/14/2017 CT DOSE: TECHNIQUE: Standard CT of the Abdomen and Pelvis was performed with IV contrast. A dose lowering technique was utilized adhering to the principles of ALARA. Contrast Volume: Optiray 320, 120 ml. The patient did not receive oral contrast. FINDINGS: Lung base: The lung bases are clear. Abdominal cavity: There is no evidence for abdominal mass, adenopathy or ascites. Liver: There is homogeneous attenuation of the liver parenchyma. There is no evidence for enhancing mass lesion. Spleen: There is homogeneous attenuation of the splenic parenchyma. There is no enhancing mass lesion. Pancreas: There is homogeneous attenuation of the pancreatic parenchyma. There is no evidence for mass lesion or peripancreatic fluid collection. Gall Bladder: The gallbladder is well distended with no evidence for intraluminal calculi, wall thickening or pericholecystic edema. Adrenal glands: The adrenal glands are normal in size and attenuation. There is no evidence for enhancing mass lesion. Kidneys: There is homogeneous attenuation of the renal parenchyma bilaterally. There is no evidence for renal calculus or hydronephrosis. There is no evidence for enhancing mass. Bowel: There is a small sliding-type hiatal hernia. The bowel loops are normally placed within the abdomen and pelvis without evidence for dilatation or obstruction. There is diverticulosis of the descending and sigmoid colon. There is no evidence for diverticulitis. There are no inflammatory changes present. There is no evidence for free air. There is a normal appendix in the right lower quadrant. Bladder: The bladder is within normal limits with no evidence for focal mass, calculus or diverticulum. : There is no evidence for pelvic mass or adenopathy. There is no evidence for pelvic ascites. Uterus is again enlarged with calcified fibroid. Vasculature: There is no evidence for aneurysmal dilatation of the abdominal aorta. Mild atherosclerotic calcifications present. Osseous structures: There is no acute osseous pathology. Mild degenerative c hanges are seen within the spine. IMPRESSION: 1. No CT evidence for pancreatitis. 2. Small sliding-type hiatal hernia. 3. Diverticulosis without evidence for diverticulitis. 4. Additional nonacute findings as delineated above. ACT 112: Negative or not required by law. Electronically signed by: Myles Aggarwal M.D. 08/17/2021 6:27 PM Chest CTA 08/17/21 16:52 CT angio chest PE protocol CLINICAL HISTORY: Epigastric pain radiating into the chest. Elevated d-dimer. Evaluate for pulmonary embolus COMPARISON STUDY: No previous studies for comparison. CT DOSE: 1381.90 mGy.cm TECHNIQUE: CT Angio of the chest was performed.followed by image post processing with coronal, and sagittal MIP reformats. Contrast Volume: Optiray 320, 120 ml FINDINGS: Thyroid: There is marked enlargement of the thyroid gland with calcification present. Right lobe is greater than the left. Follow-up thyroid ultrasound on a nonemergent basis is recommended. Vasculature: There is homogeneous perfusion of the pulmonary vasculature bilaterally. No intraluminal filling defects or evidence for pulmonary embolus is seen. Airway: The airway is clear. No endobronchial lesion is identified. Lungs: There is asymmetric elevation of the right hemidiaphragm with minimal atelectasis versus scarring at the right lung base. The lungs are otherwise clear of acute alveolar opacities, air bronchograms or pulmonary nodules. Pleura: There is no evidence for pleural effusion. There is no evidence for pneumothorax. Mediastinum: There is no evidence for pathologic adenopathy. The heart size is within normal limits. There is coronary artery calcification present. The thoracic aorta is within normal limits. There is no evidence for pericardial effusion. Upper abdomen:The adrenal glands are normal bilaterally. There is evidence for hepatosplenomegaly with suspicion of fatty infiltration of the liver. Osseous structures: There is no acute osseous pathology. Impression: 1. No CTA evidence for pulmonary embolus. 2. Elevation of the right hemidiaphragm with minimal atelectasis versus scarring at the right lung base. Otherwise, no acute chest disease. 3. Coronary artery calcification. 4. Evidence for hepatosplenomegaly with fatty infiltration of liver. ACT 112: Negative or not required by law. Electronically signed by: Myles Aggarwal M.D. 08/17/2021 6:13 PM Cholangiopancreatography MRI 08/18/21 11:24 MRCP CLINICAL HISTORY: Pancreatitis. COMPARISON STUDY: Abdominal CT dated 08/17/2021. TECHNIQUE: Abdominal MRCP is performed utilizing various T2-weighted sequences in the axial and coronal planes. IV contrast was not administered for this examination. 3-D reformats are created and assessed. FINDINGS: The gallbladder is normal as visualized with no gallstones identified. There is no intra or extrahepatic biliary ductal dilatation. The common bile duct measures up to 7 mm. There are no intraluminal filling defects to suggest choledocholithiasis. There is prominence of the pancreatic duct which measures up to 4 mm in diameter. The pancreatic duct is normal in configuration. The unenhanced liver, spleen, pancreas, adrenal glands, and kidneys are grossly normal. There is no abdominal ascites. The abdominal aorta is normal in caliber. There is no evidence of bowel obstruction. No abdominal lymphadenopathy is identified. No pleural effusion is seen. IMPRESSION: 1. There is mild nonspecific prominence of the pancreatic duct. 2. Otherwise normal MRCP. No gallstones are identified and there is no evidence of choledocholithiasis. 3. There is no MRI evidence of acute pancreatitis. Dictated: 08/18/2021 5:41 PM Transcribed: 08/18/2021 6:16 PM [facility] [id number] [email or web address] Electronically signed by: Hiram Jackson M.D. 08/18/2021 6:20 PM Hospital Course (1) Acute pancreatitis: 55-year-old female with past medical history significant for type 2 diabetes, hyperlipidemia, hypertension, GERD, obesity, who presented with ongoing abdominal pain. Was also being treated for acute sinusitis as an outpatient, which was more likely conjunctivitis from using old makeup. Pancreatitis Presented with lipase 10,000 --> improved to 6000 on 08/18 CT ABD/pelvis unremarkable Etiology of acute pancreatitis unclear -no history of alcohol use, MRCP unremarkable for gallstone pancreatitis, no recent new medications Patient improved with IVF and bowel rest GI consulted, planning on outpatient EUS in 4-6 weeks. diet was advanced to solids successfully prior to discharge with resolution of initial symptoms DM type II Hgb A1c 6.8 Hold oral agents and utilizing Lantus and NovoLog per protocol while hospitalized Noted that patient is on sitagliptin as an outpatient, this medication is known to be a possible cause of pancreatitis however it is not a new medication for the patient. Would recommending discontinuing at discharge. HTN BP controlled, continue HCTZ and valsartan Noted that HCTZ is also known to be a possible cause of pancreatitis however not a new medication for the patient. Would recommend continuing discharge. DVT prophylaxis: Lovenox Total Time Total Time Spent Total Time Spent (In Minutes): 60 Discharge Plan Discharge Items Patient Disposition: Home - Self-Care Reason For Visit: ABNORMAL LABS/ABDOMINAL PAIN Discharge Diagnosis: acute pancreatitis Condition on Discharge: Good Activity: Resume your previous activity Non-emergency contact: Primary Care Provider Call non-emergency contact if: you have any medication questions, your symptoms worsen, your pain is not controlled, your pain is worsening, your pain is unusual for you and your pain is concerning for you Follow-up/Referrals: Dee Yoo PA-C [Primary Care Provider] - (Date & Time 08/25/2021 11:40 AM Provider Dee Yoo PA-C Department [facility] ) Diet: Carb Consistent or DM2 Addtl Attending Provider Instructions: Please take all medications as instructed on discharge list below. You have been taken off Januvia as this may have a side effect on your pancreas. Please work with your glycemic pharmacist on substitutions or additional therapies for diabetes as needed. It is recommended that you undergo further investigation of your pancreatitis with [facility] in 4 weeks time. It is recommended that you follow-up with your primary care physician within 1-2 weeks of hospital discharge to ensure you are still doing well, address your change in diabetic medications and ensure appropriate follow-up with GI specialist. It was a pleasure taking care of you! Please call if you have any questions or problems. You can reach a [facility] hospitalist on duty at [facility] 24 hours a day by calling [phone]. Take care of yourself. Ingrid Sunshine, DO [facility] Pending Studies at Discharge: No Stand-Alone Forms: My [facility] Medications and DC Order Prescriptions: Continued famotidine 40 mg Tablet 40 mg PO BID Qty: 0 RF: 0 simvastatin 40 mg Tablet 40 mg PO QAM Qty: 0 RF: 0 hydrochlorothiazide 25 mg Tablet 25 mg PO DAILY Qty: 0 RF: 0 potassium chloride 10 mEq Capsule, Extended Release 10 meq PO DAILY Qty: 0 RF: 0 metformin 500 mg Tablet Extended Release 24hr 2,000 mg PO PM Qty: 0 RF: 0 valsartan 80 mg tablet 80 mg PO DAILY RF: 0 aspirin 81 mg Tablet,Delayed Release (Dr/Ec) 81 mg PO DAILY RF: 0 Discontinued Januvia 100 mg tablet 100 mg PO DAILY RF: 0 Discharge Orders: Discharge Order (Routine); Ordered 08/20/21 Ordered By: Ingrid Iniguez/Other Patient Handouts: High Blood Sugar (Hyperglycemia), Managing Type 2 Diabetes Admission Data Admit Date/Time: 08/17/21 20:39 Attending Provider: Ingrid Sunshine Admit Provider: Bogdan Wilson Primary Care Provider: Dee Yoo Other Providers: Bogdan Wilson ; Nikole Velázquez ; Martine Marin ; Luis Vasquez ; Mansi Zimmer ; Wagner Norton ; Alicia Ribeiro ; Govind Bolanos ; Kingston Ricardo ; Arlette Baez ; Shaista Alvarez ; Catie Yang ; Elizabeth Langley ; Josh Calvin ; Francisca Sánchez I. Other Interventions: Discharge Summary Assessment (RN) Last Done: 08/20/21 14:31
== END 2021-08-20 15:19 | disposition home or self-care (01) | DRG 440 ==
LOC: ED 16:00 → SUATTDRO 20:39 → EDINP 20:39 → 3N 23:06